=== PATIENT | male | born 1945 | race Caucasian/White ===

== ENCOUNTER → 2018-01-18 09:07 | Outpatient (CLI) | payer MEDICARE, SELFPAY ==
[2018-01-18 10:12] LABS: AST(SGOT) 30 U/L (15-37); Alanine Aminotransfer ALT/SGPT 41 U/L (16-61); Albumin, Serum 3.7 g/dL (3.2-5.0); Alkaline Phosphatase 62 U/L (45-117); Anion Gap 8 (5-15); BUN 22 mg/dL (7-18); BUN/Creat Ratio 27.3 RATIO (10-20); Calcium,Total 8.9 mg/dL (8.5-10.1); Chloride 106 mmol/L (98-107); Cholesterol 141 mg/dL (200); Creatinine, Serum 0.81 mg/dL (0.70-1.30); EST Glomerular Filtration Rate 99 mL/min (>60); Est Glom Filt Rate - Afr Amer 120 mL/min (>60); Globulin 3.6 g/dL (2.2-4.2); Glucose 123 mg/dL (74-106); High Density Lipoprotein 38 mg/dL; Potassium 3.9 mmol/L (3.5-5.1); Protein, Total 7.3 g/dL (6.4-8.2); Sodium Level 143 mmol/L (136-145); Triglycerides 156 mg/dL; Very Low Density Lipoprotein 31 mg/dL (5-40)
== END ==
PROVIDERS: Family Provider Family Medicine; PCP Family Medicine; Visit Provider Family Medicine
DX: E78.5 Hyperlipidemia, unspecified (principal)
CPT/HCPCS: 36415; 80053; 80061

== ENCOUNTER → 2018-07-10 13:44 | Outpatient (CLI) | payer MEDICARE, SELFPAY ==
[2018-06-25 14:23] VITALS: BMI 38.2
[2018-07-09 14:21] VITALS: BMI 38.2
--- NOTE | 2018-07-10 13:47 | ECHOCS_ITS ---
Reason For Study: CAD Procedure This was a 2D Doppler, Color Flow transthoracic echocardiogram. The study was technically difficult. Contrast injection was performed. Exam performed in department. Left Ventricle Normal LV size. Left ventricular systolic function is normal. The estimated ejection fraction is 60 %. No regional wall motion abnormalities noted. Right Ventricle Normal RV size. Normal systolic function. Atria The left atrium is mildly enlarged. Normal right atrium. No doppler evidence for ASD. Mitral Valve There is no mitral annular calcification. Normal mitral valve. Trivial mitral valve insufficiency. Tricuspid Valve Normal tricuspid valve. Trivial tricuspid valve insufficiency. Right ventricular systolic pressure estimated to be 40 mmHg. Aortic Valve Trisinus/trileaflet aortic valve. Normal aortic valve. Mild (1+) aortic valve insufficiency. Pulmonic Valve The pulmonic valve is not well visualized. Great Vessels Normal sized aortic root. Pericardium/Pleural No pericardial effusion. Medication 22 gauge I.V. with prn adaptor inserted into right arm. [id number] given slow IV push to enhance endocardial definition. MMode/2D Measurements & Calculations LVIDd: 5.0 cm IVSd: 0.96 cm Ao root diam: 3.3 cm LVIDs: 3.1 cm LVPWd: 0.98 cm RVDd: 3.6 cm FS: 38.4 % LAV(MOD-bp): 56.4 ml LVAd ap4: 41.1 cm2 SV(MOD-sp4): 97.0 ml LAV(MOD-bp) Indexed: 24.0 ml/m2 EDV(MOD-sp4): 142.7 ml LAV(MOD-sp2): 49.6 ml EDV(sp4-el): 147.7 ml LAV(MOD-sp4): 64.2 ml LVAs ap4: 19.5 cm2 ESV(MOD-sp4): 45.7 ml ESV(sp4-el): 46.4 ml EF(MOD-sp4): 68.0 % EF(sp4-el): 68.6 % SV(sp4-el): 101.3 ml LA A4 area: 20.9 cm2 LA dimension(2D): 3.7 cm RA A4 area: 19.4 cm2 Time Measurements MV dec time: 0.16 sec Doppler Measurements & Calculations MV E max harshal: 82.6 cm/sec Lat Peak E' Harshal: 10.8 cm/sec Med Peak E' Harshal: 7.7 cm/sec MV A max harshal: 68.7 cm/sec E/E' lat: 7.7 E/E' med: 10.7 MV E/A: 1.2 Ao V2 max: 142.5 cm/sec LV V1 max: 131.3 cm/sec PA V2 max: 117.5 cm/sec Ao max P.1 mmHg LV V1 max P.9 mmHg TR max harshal: 304.3 cm/sec TR max P.1 mmHg Interpretation Summary The study was technically difficult. Contrast injection was performed. Left ventricular systolic function is normal. The estimated ejection fraction is 60 %. The left atrium is mildly enlarged. Trivial mitral valve insufficiency. Trivial tricuspid valve insufficiency. Mild (1+) aortic valve insufficiency. Right ventricular systolic pressure estimated to be 40 mmHg. Transmitral diastolic flow velocities suggest diastolic dysfunction (pseudonormal pattern). Ordering Physician: Gisella Collins/Maxim Reno Referring Physician: JONATHAN SKY Performed By: Bell Juarez, DOMINGO, RVT
== END ==
PROVIDERS: Family Provider Family Medicine; PCP Family Medicine; Referring Provider Physician Assistant Medical; Visit Provider Physician Assistant Medical
DX: I49.3 Ventricular premature depolarization (principal)
CPT/HCPCS: 93306; Q9957; A4216; C8929

== ENCOUNTER → 2018-07-23 15:39 | Outpatient (CLI) | payer MEDICARE, SELFPAY ==
[2018-07-23 14:47] VITALS: BMI 38.0
[2018-07-23 17:25] LABS: Anion Gap 7 (5-15); BUN 16 mg/dL (7-18); BUN/Creat Ratio 21.9 RATIO (10-20); Calcium,Total 9.3 mg/dL (8.5-10.1); Chloride 103 mmol/L (98-107); Creatinine, Serum 0.73 mg/dL (0.70-1.30); EST Glomerular Filtration Rate 111 mL/min (>60); Est Glom Filt Rate - Afr Amer 134 mL/min (>60); Glucose 91 mg/dL (74-106); Potassium 4.1 mmol/L (3.5-5.1); Sodium Level 140 mmol/L (136-145)
== END ==
PROVIDERS: Family Provider Family Medicine; PCP Family Medicine; Referring Provider Physician Assistant Medical; Visit Provider Physician Assistant Medical
DX: I25.10 Atherosclerotic heart disease of native coronary artery without angina pectoris (principal); I10 Essential (primary) hypertension
CPT/HCPCS: 36415; 80048

== ENCOUNTER → 2019-01-20 14:52 | Outpatient (CLI) | payer OTHER, SELFPAY ==
[2019-01-20 13:35] VITALS: BMI 37.8
[2019-01-20 16:48] LABS: ALB/GLOB Ratio 0.8 RATIO (0.9-2.4); AST(SGOT) 30 U/L (15-37); Alanine Aminotransfer ALT/SGPT 36 U/L (16-61); Albumin, Serum 3.4 g/dL (3.2-5.0); Alkaline Phosphatase 66 U/L (45-117); Anion Gap 6 (5-15); BUN 14 mg/dL (7-18); BUN/Creat Ratio 17.2 RATIO (10-20); Calcium,Total 8.8 mg/dL (8.5-10.1); Chloride 108 mmol/L (98-107); Cholesterol 129 mg/dL (200); Creatinine, Serum 0.82 mg/dL (0.70-1.30); EST Glomerular Filtration Rate 98 mL/min (>60); Est Glom Filt Rate - Afr Amer 118 mL/min (>60); Glucose 97 mg/dL (74-106); High Density Lipoprotein 38 mg/dL; Potassium 3.6 mmol/L (3.5-5.1); Protein, Total 7.4 g/dL (6.4-8.2); Sodium Level 143 mmol/L (136-145); Triglycerides 189 mg/dL; Very Low Density Lipoprotein 38 mg/dL (5-40)
== END ==
PROVIDERS: Family Provider Family Medicine; PCP Family Medicine; Referring Provider Family Medicine; Visit Provider Family Medicine
DX: E78.5 Hyperlipidemia, unspecified (principal); I25.10 Atherosclerotic heart disease of native coronary artery without angina pectoris
CPT/HCPCS: 36415; 80053; 80061

== ENCOUNTER → 2019-07-21 13:54 | Outpatient (CLI) | payer MEDICARE, SELFPAY ==
[2019-07-21 13:15] VITALS: BMI 37.7
[2019-07-21 15:25] LABS: AST(SGOT) 33 U/L (15-37); Alanine Aminotransfer ALT/SGPT 32 U/L (16-61); Albumin, Serum 3.9 g/dL (3.2-5.0); Alkaline Phosphatase 58 U/L (45-117); Anion Gap 7 (5-15); BUN 19 mg/dL (7-18); BUN/Creat Ratio 22.5 RATIO (10-20); Calcium,Total 9.2 mg/dL (8.5-10.1); Chloride 102 mmol/L (98-107); Cholesterol 150 mg/dL (200); Creatinine, Serum 0.85 mg/dL (0.70-1.30); EST Glomerular Filtration Rate 94 mL/min (>60); Est Glom Filt Rate - Afr Amer 113 mL/min (>60); Globulin 4.1 g/dL (2.2-4.2); Glucose 110 mg/dL (74-106); High Density Lipoprotein 41 mg/dL; Sodium Level 139 mmol/L (136-145); Triglycerides 163 mg/dL; Very Low Density Lipoprotein 33 mg/dL (5-40)
== END ==
PROVIDERS: PCP Family Medicine; Referring Provider Family Medicine; Visit Provider Family Medicine
DX: I10 Essential (primary) hypertension (principal)
CPT/HCPCS: 36415; 80053; 80061

== ENCOUNTER → 2020-01-27 14:12 | Outpatient (CLI) | payer MEDICARE, SELFPAY ==
[2020-01-27 13:20] VITALS: BMI 38.3
[2020-01-27 15:54] LABS: ALB/GLOB Ratio 0.9 RATIO (0.9-2.4); AST(SGOT) 35 U/L (15-37); Alanine Aminotransfer ALT/SGPT 33 U/L (16-61); Albumin, Serum 3.6 g/dL (3.2-5.0); Alkaline Phosphatase 75 U/L (45-117); Anion Gap 4 (5-15); BUN 19 mg/dL (7-18); BUN/Creat Ratio 19.8 RATIO (10-20); Calcium,Total 9.2 mg/dL (8.5-10.1); Chloride 106 mmol/L (98-107); Cholesterol 150 mg/dL (200); Creatinine, Serum 0.96 mg/dL (0.70-1.30); EST Glomerular Filtration Rate 81 mL/min (>60); Est Glom Filt Rate - Afr Amer 98 mL/min (>60); Glucose 115 mg/dL (74-106); High Density Lipoprotein 38 mg/dL; Potassium 4.1 mmol/L (3.5-5.1); Protein, Total 7.6 g/dL (6.4-8.2); Sodium Level 142 mmol/L (136-145); Triglycerides 161 mg/dL; Very Low Density Lipoprotein 32 mg/dL (5-40)
== END ==
PROVIDERS: PCP Family Medicine; Referring Provider Family Medicine; Visit Provider Family Medicine
DX: I10 Essential (primary) hypertension (principal)
CPT/HCPCS: 36415; 80053; 80061

== ENCOUNTER 2020-07-21 17:44 | Outpatient (RCR) | payer MEDICARE, SELFPAY ==
[2020-03-17 13:02] VITALS: BMI 35.7
[2020-07-21] MEDS: COVID-19 VACC, MRNA(PFIZER)/PF 30 MCG/0.3 ML SYRINGE IM (14:09)
[2020-08-11] MEDS: COVID-19 VACC, MRNA(PFIZER)/PF 30 MCG/0.3 ML SYRINGE IM (13:50)
== END 2020-10-25 23:59 ==
LOC: IMMUN 17:44
PROVIDERS: PCP Family Medicine; Referring Provider Family Medicine; Visit Provider Family Medicine
DX: Z23 Encounter for immunization (principal)
CPT/HCPCS: 0001A; 0002A; 91300

== ENCOUNTER 2020-11-11 17:48 | Inpatient (IN) | payer MEDICARE, SELFPAY ==
[2020-07-27 13:23] VITALS: BMI 35.2
[2020-11-11 17:49] VITALS: BP 160/76; PULSE 104; RESP 16; TEMP 38.4; O2SAT 92; BMI 33.2
[2020-11-11 18:34] LABS: Anion Gap 10 (5-15); BUN 31 mg/dL (7-18); BUN/Creat Ratio 25.2 RATIO (10-20); Calcium,Total 8.9 mg/dL (8.5-10.1); Chloride 99 mmol/L (98-107); Creatinine, Serum 1.23 mg/dL (0.70-1.30); EST Glomerular Filtration Rate 61 mL/min (>60); Est Glom Filt Rate - Afr Amer 73 mL/min (>60); Estimated Creatinine Clearance 50.29 ml/min; Glucose 154 mg/dL (74-106); Potassium 3.1 mmol/L (3.5-5.1); Sodium Level 136 mmol/L (136-145)
[2020-11-11 18:44] LABS: Absolute Lymphocyte Count 0.38 X10^3/uL (0.83-4.51); Absolute Neutrophil Count 12.8 X10^3/uL (2.0-7.7); Basophil# 0.04 X10^3/uL; Basophil% 0.3 % (0-1); Eosinophils% 0.7 % (0-5); Hematocrit 44.6 % (40-54); Hemoglobin 15.2 g/dL (13.0-16.5); Lymphocyte # 0.38 X10^3/ul (0.83-4.51); Lymphocyte % 2.7 % (19-41); Mean Corp Hgb Conc 34.1 g/dL (32-36); Mean Corpuscular Hgb 29.7 pg (27.0-32.0); Mean Corpuscular Volume 87.3 fL (80-94); Mean Platelet Vol. 9.6 fl (6.2-12.0); Monocyte# 0.45 X10^3/uL; Monocyte% 3.2 % (0-10); NRBC Flagged by Analyzer 0 % (0-5); Neutrophil # 12.84 X10^3/uL (2.7-7.7); Neutrophil % 91.9 % (47-70); POSITIVE DIFFERENTIAL YES; Platelet Count 137 K/mm3 (150-450); RBC Distribution Width CV 13.6 % (11.6-14.6); RBC Distribution Width SD 43.7 fl (35.1-43.9); Red Blood Count 5.11 M/mm3 (4.6-6.2)
[2020-11-11 18:53] LABS: Lactic Acid 1.5 mmol/L (0.4-1.9)
--- NOTE | 2020-11-11 18:57 | RAD_ITS ---
STUDY: X-RAY CHEST REASON FOR EXAM: Male, 75 years old. fever TECHNIQUE: 1 view COMPARISON: Prior chest radiograph of 10/18/2011 FINDINGS: Reduced inspiration with mild bibasilar atelectatic changes. There is no demonstrated pleural abnormality. Normal size heart. Normal mediastinum and andrew. Normal visualized pulmonary arteries. There is atherosclerotic calcification of the aortic arch . Normal visualized thoracic spine. Normal visualized ribs, clavicles, and shoulders. There is no demonstrated abnormality of the visualized soft tissue structures of the upper abdomen. RAD/Chest 1 View (Portable) IMPRESSION: Limited inspiration with mild bibasilar atelectatic changes without other acute cardiopulmonary findings. Electronically Signed: Meenakshi Corley MD at 21:35 EDT , Service support ,
--- NOTE | 2020-11-11 18:58 | EDS_ITS ---
HPI History of Present Illness Chief Complaint: Fever Detail of Chief Complaint: Patient with fever that started yesterday. Informant: patient Narrative Narrative: Patient states that has not been feeling well for a couple of days. Today they noticed that he had a temperature of 103. Patient planes of chills and sweats and feeling generally weak. Patient also noticed that his left leg was red and hot to the touch. Patient denies any chest pain or shortness of breath. He has minimal cough. Patient has had both Covid vaccinations. Patient also complaining of some pain in his left shoulder. The pain in the shoulder is been there for a couple of days he is not sure if he may have hurt it. Prior similar symptoms: No PFSH [facility] Medical History (Updated 11/11/20 @ 20:[address] Shari Thornton, ) Arthritis Atherosclerotic heart disease of [place] coronary artery without angina pectoris Dyspnea on exertion Essential hypertension Hyperlipidemia SILAS (obstructive sleep apnea) Photosensitivity Premature ventricular contraction PVT (paroxysmal ventricular tachycardia) Home Medications aspirin 81 mg tablet,delayed release 81 mg PO QDAY tab 08/12/17 [History Last Taken Unknown] loratadine 10 mg tablet 10 mg PO QDAY PRN 08/12/17 [History Last Taken Unknown] multivitamin 1 tab PO QDAY 08/12/17 [History Last Taken Unknown] Lactobacillus acidophilus-Bifidobac.animalis 2 billion cell capsule cap PO 01/27/20 [History Last Taken Unknown] metoprolol tartrate 100 mg tablet 100 mg PO BID #180 tab 02/01/20 [Rx Last Taken Unknown] pravastatin 40 mg tablet 40 mg PO QHS #90 tab 02/26/20 [Rx Last Taken Unknown] amlodipine 5 mg tablet 5 mg PO QDAY #90 tab 03/28/20 [Rx Last Taken Unknown] hydrochlorothiazide 25 mg tablet 25 mg PO QDAY #90 tab 06/14/20 [Rx Last Taken Unknown] acetaminophen 325 mg tablet 325 mg PO ONCE PRN 07/27/20 [History Last Taken Unknown] furosemide 40 mg tablet 40 mg PO DAILY PRN #30 tab 07/27/20 [Rx Last Taken Unknown] Allergy/AdvReac Type Severity Reaction Status Date / Time lisinopril AdvReac Severe Tachycardia Verified 11/11/20 17:52 losartan [From Cozaar] AdvReac Severe flushing Verified 06/25/21 17:52 of face and chest Family History Brother Dysrhythmia Brother CAD (coronary artery disease) Presence of stent in coronary artery Cancer prostate Father Heart disease Cancer prostate Surgical History History of cardiac cath Hx of appendectomy Social History (Updated 07/27/20 @ 13:[address] Rudolph Be, DO) Smoking Status: Former smoker how long ago did patient quit smokin alcohol intake: current alcohol intake frequency: a few times a month Alcohol type: beer substance use type: does not use what type of physical activity do you participate in: walking ROS ROS ED Constitutional Constitutional ED: Reports systems reviewed and no addt'l complaints, except as documented, chills, fever(s) and sweats; Denies body ache(s) or change in weight Eyes Eyes: Denies acute decrease in peripheral vision, change in vision, double vision or loss of vision ENT ENT ED: Reports none; Denies ear pain, lip swelling, loss taste/smell, neck pain, otalgia or sore throat Cardiovascular Cardiovascular: Reports none; Denies abdominal pain, chest pain with activity, leg edema, lightheadedness, palpitations, rapid heart rate or syncope Respiratory/Chest Respiratory/Chest: Reports none; Denies change in mental status, dry cough, dyspnea, hemoptysis, shortness of breath at rest or shortness of breath with exertion Gastrointestinal Gastrointestinal: Reports none; Denies abdominal pain, change in stool character, diarrhea, hematemesis, hematochezia, melena, rectal bleeding or vomiting Genitourinary Genitourinary ED: Reports none; Denies abdominal discomfort, anuria, dysuria, genital pain or polyuria Musculoskeletal Musculoskeletal: Reports none; Denies arthralgias, back pain, difficulty walking, extremity pain, muscle weakness or myalgias Integumentary Reports none and other Details: Erythema to the left leg ; Denies abscess or rash Neurologic Neurologic: Reports none; Denies abnormal gait, confusion, focal weakness, frequent falls, headache(s), loss of vision, numbness, paresthesias, radicular pain, vertigo or weakness Psychiatric Psychiatric: Reports systems reviewed and no addt'l complaints, except as documented and none; Denies behavioral changes, confusion, difficulty concentrating, hallucinations, suicidal ideation, tactile hallucinations or visual hallucinations Endocrine Endocrinology: Denies none, cold intolerance, excessive sweating, fatigue or heat intolerance Hematologic/Lymphatic Hematologic/Lymphatic: Reports none; Denies anemia, easy bleeding or easy bruising Allergic/Immunologic Allergic/Immunologic ED: Denies as per HPI, none, lip swelling, mouth swelling, throat swelling, tongue swelling or hives EXAM Physical Exam Const Vital Signs: 11/11/20 17:49 Temperature 101.1 F H Temperature Source Temporal Pulse Rate 104 H Respiratory Rate 16 Blood Pressure 160/76 H Blood Pressure Mean 104 Pulse Ox 92 Oxygen Delivery Method Room Air Positive well nourished and well developed General Appearance ED: well developed and NAD HEENT Reports TM's clear and moist mucous membranes normocephalic and atraumatic; Negative for trauma or tenderness Tympanic Membrane ED: Yes TM's clear Eyes PERRL and EOMs intact bilaterally General Eye ED: Negative for pale conjunctiva or scleral icterus Neck no lymphadenopathy, supple and no JVD General: Negative for tenderness Chest Wall inspection of chest normal and palpation of chest normal Chest: Negative for tenderness Resp normal respiratory effort and clear to auscultation bilaterally Effort and Inspection: Negative for respiratory distress or pain with movement Auscultation: Negative for rhonchi, wheezes or diminished lung sounds Cardio regular rate, regular rhythm, S1 normal heart sound, S2 normal heart sound and no murmurs Peripheral Pulses: pulses 2+ throughout GI normal to inspection, nondistended, normoactive bowel sounds, soft to palpation, non-tender, non-distended and no masses Back/Spine no CVA tenderness and no thoracic nor lumbar tenderness Extremity normal to inspection Extremity Narrative: Patient has cellulitic changes of the left lower extremities from below the knee to the dorsum of the foot. General Extremety ED: Negative for edema General Extremity: Negative for edema Neuro oriented x3, CN's II-XII intact bilaterally, no sensory deficits noted and gait normal Sensorium / Orientation: awake, alert, oriented to person, oriented to place and oriented to time Motor Exam: strength 5/5 throughout and strength abnormal Psych mental status grossly normal Skin no rashes or lesions noted and no wounds MDM MDM MDM Narrative Medical decision making narrative: Patient started on Unasyn on arrival. Patient case discussed with hospitalist will evaluate patient for admission Lab Data Labs: Laboratory Results - last 24 hr 11/11/20 11/11/20 11/11/20 18:05 18:05 18:05 WBC 14.0 H RBC 5.11 Hgb 15.2 Hct 44.6 MCV 87.3 MCH 29.7 MCHC 34.1 RDW Std Deviation 43.7 RDW Coeff of [place] 13.6 Plt Count 137 L MPV 9.6 Immature Gran % (Auto) 1.200 H Neut % (Auto) 91.9 H Lymph % (Auto) 2.7 L [place] % (Auto) 3.2 Eos % (Auto) 0.7 Baso % (Auto) 0.3 Absolute Neuts (auto) 12.8 H Absolute Lymphs (auto) 0.38 L Nucleated RBC % 0 Differential Comment SCANNED Sodium 136 Potassium 3.1 L Chloride 99 Carbon Dioxide 27.0 Anion Gap 10 BUN 31 H Creatinine 1.23 Estim Creat Clear Calc 50.29 Est GFR (MDRD) Af Amer 73 Est GFR (MDRD) Non-Af 61 BUN/Creatinine Ratio 25.2 H Glucose 154 H Lactic Acid 1.5 Calcium 8.9 Discharge Plan Triage Chief Complaint: Fever ED Provider: Shari Thornton Dx/Rx/DC Orders Clinical Impression: Cellulitis of left leg, Sepsis Prescriptions: No Action multivitamin tablet 1 tab PO QDAY RF: 0 loratadine 10 mg tablet 10 mg PO QDAY PRNRF: 0 aspirin 81 mg tablet,delayed release (DR/EC) 81 mg PO QDAY RF: 0 One-A-Day Trubiotics 2 billion cell capsule PO RF: 0 acetaminophen 325 mg tablet 325 mg PO ONCE PRNRF: 0 furosemide [Lasix] 40 mg tablet 40 mg PO DAILY PRN (Reason: edema) Qty: 30 RF: 3 metoprolol tartrate 100 mg tablet 100 mg PO BID Qty: 180 RF: 3 pravastatin 40 mg tablet 40 mg PO QHS Qty: 90 RF: 3 amlodipine 5 mg tablet 5 mg PO QDAY Qty: 90 RF: 4 hydrochlorothiazide 25 mg tablet 25 mg PO QDAY Qty: 90 RF: 3 Primary Care Provider: Rudolph Be Referrals: Rudolph Be, DO [Primary Care Provider] - Disposition Disposition: [facility]
[2020-11-11 19:00] LABS: Differential Indicated SCAN CRITERIA MET
[2020-11-11 19:33] LABS: Differential Comment SCANNED
[2020-11-11] MEDS: 0.9% Normal Saline 1,000 ML 1000 ML IV (20:18)
[2020-11-11 20:22] LABS: Color, Urine Yellow (Yellow); Glucose, Dipstick Normal (Normal); Ketone-Dipstick 15 mg/dl (Negative); Leukocyte Esterase-Dipstick Negative /ul (Negative); Nitrite-Dipstick Negative (Negative); Occult Blood-Urine 150 /ul (Negative); Protein-Dipstick 100 mg/dl (Negative); Urine Bilirubin Dipstick Negative (Negative); Urine Clarity Clear (Clear); Urine Urobilinogen Normal (Normal)
[2020-11-11 20:44] LABS: Amorphous Sediment 1+; Bacteria 1+ /hpf (None Seen); Fine Granular Cast- Urine 0-5 SEEN /lpf (0-5); Hyaline Cast 0-5 SEEN /lpf (0-5); Mucous, Urine 1+ /hpf (<or=2+); Red Blood Cells-Urine 0-5 SEEN /hpf (0-5); Renal Epithelial Cells 0-5 SEEN /hpf (0-5); Squamous Epithelial Cells - UA 0-5 SEEN /hpf (0-5); White Blood Cells 0-5 SEEN /hpf (0-5)
--- NOTE | 2020-11-11 20:50 | PCM.HP.STD ---
HPI - General General Date of Admission: 11/11/20 Date of Service: 11/11/20 Chief Complaint: malaise HPI Narrative DEJUAN PÉREZ, is a 75 M who presents presents with a 2-day history of general malaise, myalgias and weakness. About 3 days prior, patient had noticed some pain in his distal left leg. That eventually developed redness on his left lower extremity. Patient just felt weaker and weaker and just more ill and presented to the emergency room. Patient had a infectious work-up and was found to have left lower extremity cellulitis and received ampicillin/sulbactam. Patient denies ever having had cellulitis before. [facility] Medical History Arthritis Atherosclerotic heart disease of [place] coronary artery without angina pectoris Dyspnea on exertion Essential hypertension Hyperlipidemia SILAS (obstructive sleep apnea) Photosensitivity Premature ventricular contraction PVT (paroxysmal ventricular tachycardia) Home Medications aspirin 81 mg tablet,delayed release 81 mg PO QDAY tab 08/12/17 [History Last Taken Unknown] loratadine 10 mg tablet 10 mg PO QDAY PRN 08/12/17 [History Last Taken Unknown] multivitamin 1 tab PO QDAY 08/12/17 [History Last Taken Unknown] Lactobacillus acidophilus-Bifidobac.animalis 2 billion cell capsule cap PO 01/27/20 [History Last Taken Unknown] metoprolol tartrate 100 mg tablet 100 mg PO BID #180 tab 02/01/20 [Rx Last Taken Unknown] pravastatin 40 mg tablet 40 mg PO QHS #90 tab 02/26/20 [Rx Last Taken Unknown] amlodipine 5 mg tablet 5 mg PO QDAY #90 tab 03/28/20 [Rx Last Taken Unknown] hydrochlorothiazide 25 mg tablet 25 mg PO QDAY #90 tab 06/14/20 [Rx Last Taken Unknown] acetaminophen 325 mg tablet 325 mg PO ONCE PRN 07/27/20 [History Last Taken Unknown] furosemide 40 mg tablet 40 mg PO DAILY PRN #30 tab 07/27/20 [Rx Last Taken Unknown] Allergy/AdvReac Type Severity Reaction Status Date / Time lisinopril AdvReac Severe Tachycardia Verified 11/11/20 17:52 losartan [From Cozaar] AdvReac Severe flushing Verified 11/11/20 17:52 of face and chest Family History Brother Dysrhythmia Brother CAD (coronary artery disease) Presence of stent in coronary artery Cancer prostate Father Heart disease Cancer prostate Surgical History History of cardiac cath Hx of appendectomy Social History Smoking Status: Former smoker how long ago did patient quit smokin alcohol intake: current alcohol intake frequency: a few times a month Alcohol type: beer substance use type: does not use what type of physical activity do you participate in: walking ROS ROS Narrative Positive cough. No shortness of breath. No chest pain. No sore throat or rhinitis. Denies anosmia. Denies dysgeusia. Denies any sick contacts. Denies any contact with anyone with COVID-19. Has been vaccinated from COVID-19. All review of systems were negative except as mentioned above in the history of present illness and the other review of systems. Vital Signs Vital Signs Vital Signs: 11/11/20 17:49 Temperature 38.4 C H Temperature Source Temporal Pulse Rate 104 H Respiratory Rate 16 Blood Pressure 160/76 H Blood Pressure Mean 104 Pulse Ox 92 Oxygen Delivery Method Room Air Weight Weight: 102.058 kg Body Mass Index (BMI) 33.2 Physical Exam Const alert and oriented x3 HEENT normocephalic and moist oral mucous membranes Eyes PERRL Resp normal respiratory effort and no use of accessory muscles Cardio regular rate, regular rhythm, S1 normal heart sound and S2 normal heart sound GI normal to inspection, nondistended, normoactive bowel sounds, non-tender and non-distended Extremity normal to inspection Extremity Narrative: Bilateral nonpitting edema lower extremity Peripheral Pulses: Yes pulses 2+ throughout Skin Skin Narrative: Erythema of the distal left lower extremity. At the ankle and extending proximally. Does have satellite lesions. Is warm but not indurated. Neuro moves all extremities Sensorium / Orientation: awake and alert Speech: speech normal Psych affect normal Results Lab / Micro Data Attestation: I reviewed the patient's lab results. Result Diagrams: 11/11/20 18:05 11/11/20 18:05 Labs: Laboratory Results - last 24 hr 11/11/20 11/11/20 11/11/20 18:05 18:05 18:05 WBC 14.0 H RBC 5.11 Hgb 15.2 Hct 44.6 MCV 87.3 MCH 29.7 MCHC 34.1 RDW Std Deviation 43.7 RDW Coeff of [place] 13.6 Plt Count 137 L MPV 9.6 Immature Gran % (Auto) 1.200 H Neut % (Auto) 91.9 H Lymph % (Auto) 2.7 L [place] % (Auto) 3.2 Eos % (Auto) 0.7 Baso % (Auto) 0.3 Absolute Neuts (auto) 12.8 H Absolute Lymphs (auto) 0.38 L Nucleated RBC % 0 Differential Comment SCANNED Sodium 136 Potassium 3.1 L Chloride 99 Carbon Dioxide 27.0 Anion Gap 10 BUN 31 H Creatinine 1.23 Estim Creat Clear Calc 50.29 Est GFR (MDRD) Af Amer 73 Est GFR (MDRD) Non-Af 61 BUN/Creatinine Ratio 25.2 H Glucose 154 H Lactic Acid 1.5 Calcium 8.9 Urine Color Urine Clarity Urine pH Ur Specific [place] Urine Protein Urine Glucose (UA) Urine Ketones Urine Occult Blood Urine Nitrite Urine Bilirubin Urine Urobilinogen Ur Leukocyte Esterase Urine RBC Urine WBC Ur Squamous Epith Cells Ur Renal Epithelial Cell Amorphous Sediment Urine Bacteria Hyaline Casts Fine Granular Casts Urine Mucus 11/11/20 20:15 WBC RBC Hgb Hct MCV MCH MCHC RDW Std Deviation RDW Coeff of [place] Plt Count MPV Immature Gran % (Auto) Neut % (Auto) Lymph % (Auto) [place] % (Auto) Eos % (Auto) Baso % (Auto) Absolute Neuts (auto) Absolute Lymphs (auto) Nucleated RBC % Differential Comment Sodium Potassium Chloride Carbon Dioxide Anion Gap BUN Creatinine Estim Creat Clear Calc Est GFR (MDRD) Af Amer Est GFR (MDRD) Non-Af BUN/Creatinine Ratio Glucose Lactic Acid Calcium Urine Color Yellow Urine Clarity Clear Urine pH 5.0 Ur Specific [place] 1.020 Urine Protein 100 H Urine Glucose (UA) Normal Urine Ketones 15 H Urine Occult Blood 150 H Urine Nitrite Negative Urine Bilirubin Negative Urine Urobilinogen Normal Ur Leukocyte Esterase Negative Urine RBC 0-5 SEEN Urine WBC 0-5 SEEN Ur Squamous Epith Cells 0-5 SEEN Ur Renal Epithelial Cell 0-5 SEEN Amorphous Sediment 1+ Urine Bacteria 1+ Hyaline Casts 0-5 SEEN Fine Granular Casts 0-5 SEEN Urine Mucus 1+ Assessment & Plan Assessment/Plan (1) Cellulitis of left leg: PLAN: 1. Left lower extremity cellulitis No evidence of organ dysfunction. qSOFA score 0. NEWS 2 score is 2. Sepsis rule out may be early sepsis. Patient received ampicillin/sulbactam in the emergency room. I am concerned for staph or strep and will give the patient monotherapy with vancomycin instead. Plan is to watch patient overnight and if improving 26 then can transition him over to oral agents. 2. Hypertension On amlodipine as well as metoprolol. Patient also takes furosemide and HCTZ. Patient is dehydrated so we will give him fluids and hold off on his diuretics. Patient does have lower extremity edema. May consider as outpatient changing the amlodipine over to something else to see if that helps his lower extremity edema. 3. VTE prophylaxis: Not indicated given patient's current observation status at this time. 4. Advanced care planning: Discussed with the patient. Patient wishes to be full CODE STATUS 5. Health maintenance: Discussed with patient. Patient has been vaccinated for COVID-19. Charges/Coding Visit Charges OBSV E&M: 43841 Initial observation care L3
[2020-11-11 21:03] VITALS: BP 143/68; PULSE 101; RESP 23; O2SAT 93
[2020-11-11 21:44] VITALS: PULSE 98
[2020-11-11 22:03] VITALS: BMI 35.3
[2020-11-11] MEDS: Acetaminophen 325 MG Tablet 650 MG PO (22:18)
[2020-11-11 22:28] VITALS: BP 117/40; PULSE 91; RESP 16; TEMP 39.4; O2SAT 93
[2020-11-11] MEDS: Potassium Chloride Oral Tablet 20 MEQ 40 MEQ PO (22:52)
[2020-11-11 22:53] VITALS: PULSE 91
[2020-11-11] MEDS: 0.9% Normal Saline 1,000 ML 200 ML IV (22:53)
[2020-11-11] MEDS: Metoprolol Tartrate 100 MG Tablet PO (22:53)
[2020-11-11] MEDS: Pravastatin 40 MG Tablet PO (22:53)
[2020-11-11] MEDS: Ibuprofen 400 MG Tablet PO (22:55)
--- NOTE | 2020-11-11 23:41 | PCM.RX.CS ---
Consult Pharmacy has been consulted to manage selected antiobiotic: Vancomycin Type of Consult: New start Prior Doses of Antibiotics Received/Current Regimen: Medications Vancomycin HCl 1,500 mg/ (Sodium Chloride) 530 mls @ 250 mls/hr IV X1 ONE Stop: 11/12/20 01:07 Last Admin: 11/11/20 22:52 Dose: 250 mls/hr Documented by: Labs: Sodium 136 mmol/L (136-145) 11/11/20 18:05 Potassium 3.1 mmol/L (3.5-5.1) L 11/11/20 18:05 Chloride 99 mmol/L (98-107) 11/11/20 18:05 Carbon Dioxide 27.0 mmol/L (21.0-32.0) 11/11/20 18:05 Anion Gap 10 (5-15) 11/11/20 18:05 BUN 31 mg/dL (7-18) H 11/11/20 18:05 Creatinine 1.23 mg/dL (0.70-1.30) 11/11/20 18:05 Est GFR (MDRD) Af Amer 73 mL/min (>60) 11/11/20 18:05 Est GFR (MDRD) Non-Af 61 mL/min (>60) 11/11/20 18:05 BUN/Creatinine Ratio 25.2 RATIO (10-20) H 11/11/20 18:05 Glucose 154 mg/dL (74-106) H 11/11/20 18:05 Goal Trough: 10-15 mcg/mL Pharmacy Plan for Drug Dosinmg initial and 1000mg q12h per policy with trough prior to 4th dose Pharmacy Service will continue to monitor and adjust dosing as required. Follow-Up Labs: Trough Vancomycin - 11/13 @ 1573
[2020-11-12] VITALS (7 sets, daily range): BP systolic 109–143; BP diastolic 50–66; PULSE 65–85; RESP 16–18; TEMP 36.6–37.6; O2SAT 94–97
[2020-11-12 06:33] LABS: Absolute Lymphocyte Count 0.36 X10^3/uL (0.83-4.51); Absolute Neutrophil Count 10.3 X10^3/uL (2.0-7.7); Basophil# 0.02 X10^3/uL; Basophil% 0.2 % (0-1); Hematocrit 41.6 % (40-54); Hemoglobin 13.6 g/dL (13.0-16.5); Lymphocyte # 0.36 X10^3/ul (0.83-4.51); Lymphocyte % 3.2 % (19-41); Mean Corp Hgb Conc 32.7 g/dL (32-36); Mean Corpuscular Hgb 29.2 pg (27.0-32.0); Mean Corpuscular Volume 89.5 fL (80-94); Mean Platelet Vol. 9.9 fl (6.2-12.0); Monocyte# 0.33 X10^3/uL; NRBC Flagged by Analyzer 0 % (0-5); Neutrophil # 10.29 X10^3/uL (2.7-7.7); Neutrophil % 92.9 % (47-70); POSITIVE DIFFERENTIAL YES; POSITIVE MORPHOLOGY YES; Platelet Count 118 K/mm3 (150-450); RBC Distribution Width CV 13.8 % (11.6-14.6); RBC Distribution Width SD 44.6 fl (35.1-43.9); Red Blood Count 4.65 M/mm3 (4.6-6.2); White Blood Count 11.1 K/mm3 (4.4-11.0)
[2020-11-12 06:34] LABS: Differential Indicated SCAN CRITERIA MET
[2020-11-12 07:05] LABS: ALB/GLOB Ratio 0.8 RATIO (0.9-2.4); AST(SGOT) 44 U/L (15-37); Alanine Aminotransfer ALT/SGPT 30 U/L (16-61); Albumin, Serum 2.6 g/dL (3.2-5.0); Alkaline Phosphatase 60 U/L (45-117); Anion Gap 9 (5-15); BUN 27 mg/dL (7-18); BUN/Creat Ratio 27.2 RATIO (10-20); Calcium,Total 7.7 mg/dL (8.5-10.1); Chloride 104 mmol/L (98-107); Creatinine, Serum 0.99 mg/dL (0.70-1.30); EST Glomerular Filtration Rate 78 mL/min (>60); Est Glom Filt Rate - Afr Amer 94 mL/min (>60); Estimated Creatinine Clearance 66.55 ml/min; Globulin 3.4 g/dL (2.2-4.2); Glucose 123 mg/dL (74-106); Magnesium 1.7 mg/dL (1.6-2.6); Sodium Level 139 mmol/L (136-145)
[2020-11-12 07:08] LABS: Differential Comment SCANNED
[2020-11-12] MEDS: Aspirin E.C. 81 MG Tablet PO (09:38)
[2020-11-12] MEDS: Acetaminophen 325 MG Tablet 650 MG PO ×2 (09:38→20:20)
[2020-11-12] MEDS: Metoprolol Tartrate 100 MG Tablet PO ×2 (09:38→21:00)
[2020-11-12] MEDS: Multivitamins,Therapeutic Tablet 1 TABLET PO (09:39)
[2020-11-12] MEDS: amLODIPine 5 MG Tablet PO (09:39)
[2020-11-12] MEDS: Vancomycin IV 1,000 MG/200 ML BAG 200 MG IV ×2 (11:10→22:30)
[2020-11-12] MEDS: Furosemide 40 MG Tablet PO (12:26)
--- NOTE | 2020-11-12 14:05 | PN.HOSP_ITS ---
Subjective Subjective Patient was seen and examined. He feels improved. Denied any fever or chills. His leg swelling and erythema is much improved. Objective Data Objective Data Vital Signs: Vital Signs Temp Pulse Resp BP Pulse Ox 98.4 F 65 16 115/61 95 11/12/20 12:39 11/12/20 12:39 11/12/20 12:39 11/12/20 12:39 11/12/20 12:39 Oxygen Delivery Method Room Air Weight: 114.8 kg Body Mass Index (BMI) 35.3 Intake & Output: Intake and Output for Last 24 Hours 11/10/20 11/11/20 11/12/20 23:59 23:59 23:59 Intake Total 1352 / 1352 2480 / 2480 Output Total 100 / 100 950 / 950 Balance 1252 / 1252 1530 / 1530 Lab / Micro Data Result Diagrams: 11/12/20 05:14 11/12/20 05:14 Labs: Laboratory Results - last 24 hr 11/11/20 11/11/20 11/11/20 18:05 18:05 18:05 WBC 14.0 H RBC 5.11 Hgb 15.2 Hct 44.6 MCV 87.3 MCH 29.7 MCHC 34.1 RDW Std Deviation 43.7 RDW Coeff of [place] 13.6 Plt Count 137 L MPV 9.6 Immature Gran % (Auto) 1.200 H Neut % (Auto) 91.9 H Lymph % (Auto) 2.7 L [place] % (Auto) 3.2 Eos % (Auto) 0.7 Baso % (Auto) 0.3 Absolute Neuts (auto) 12.8 H Absolute Lymphs (auto) 0.38 L Nucleated RBC % 0 Differential Comment SCANNED Sodium 136 Potassium 3.1 L Chloride 99 Carbon Dioxide 27.0 Anion Gap 10 BUN 31 H Creatinine 1.23 Estim Creat Clear Calc 50.29 Est GFR (MDRD) Af Amer 73 Est GFR (MDRD) Non-Af 61 BUN/Creatinine Ratio 25.2 H Glucose 154 H Lactic Acid 1.5 Calcium 8.9 Magnesium Total Bilirubin AST ALT Alkaline Phosphatase Total Protein Albumin Globulin Albumin/Globulin Ratio Urine Color Urine Clarity Urine pH Ur Specific [place] Urine Protein Urine Glucose (UA) Urine Ketones Urine Occult Blood Urine Nitrite Urine Bilirubin Urine Urobilinogen Ur Leukocyte Esterase Urine RBC Urine WBC Ur Squamous Epith Cells Ur Renal Epithelial Cell Amorphous Sediment Urine Bacteria Hyaline Casts Fine Granular Casts Urine Mucus 11/11/20 11/12/20 11/12/20 20:15 05:14 05:14 WBC 11.1 H RBC 4.65 Hgb 13.6 Hct 41.6 MCV 89.5 MCH 29.2 MCHC 32.7 RDW Std Deviation 44.6 H RDW Coeff of [place] 13.8 Plt Count 118 L MPV 9.9 Immature Gran % (Auto) 0.700 Neut % (Auto) 92.9 H Lymph % (Auto) 3.2 L [place] % (Auto) 3.0 Eos % (Auto) 0.0 Baso % (Auto) 0.2 Absolute Neuts (auto) 10.3 H Absolute Lymphs (auto) 0.36 L Nucleated RBC % 0 Differential Comment SCANNED Sodium 139 Potassium 3.0 L Chloride 104 Carbon Dioxide 26.0 Anion Gap 9 BUN 27 H Creatinine 0.99 Estim Creat Clear Calc 66.55 Est GFR (MDRD) Af Amer 94 Est GFR (MDRD) Non-Af 78 BUN/Creatinine Ratio 27.2 H Glucose 123 H Lactic Acid Calcium 7.7 L Magnesium 1.7 Total Bilirubin 1.20 H AST 44 H ALT 30 Alkaline Phosphatase 60 Total Protein 6.0 L Albumin 2.6 L Globulin 3.4 Albumin/Globulin Ratio 0.8 L Urine Color Yellow Urine Clarity Clear Urine pH 5.0 Ur Specific [place] 1.020 Urine Protein 100 H Urine Glucose (UA) Normal Urine Ketones 15 H Urine Occult Blood 150 H Urine Nitrite Negative Urine Bilirubin Negative Urine Urobilinogen Normal Ur Leukocyte Esterase Negative Urine RBC 0-5 SEEN Urine WBC 0-5 SEEN Ur Squamous Epith Cells 0-5 SEEN Ur Renal Epithelial Cell 0-5 SEEN Amorphous Sediment 1+ Urine Bacteria 1+ Hyaline Casts 0-5 SEEN Fine Granular Casts 0-5 SEEN Urine Mucus 1+ Micro: Microbiology 11/11/20 20:02 Blood Culture (Wb) - Right Wrist Blood Culture - Preliminary 11/11/20 18:05 Blood Culture (Wb) - Right Hand Bacteria Detection (PCR) - Final Strep not Strep pneumo 11/11/20 18:05 Blood Culture (Wb) - Right Hand Blood Culture - Preliminary Radiography Diagnostic Testing: Radiology Impression Chest X-Ray 11/11/20 18:57 IMPRESSION: Limited inspiration with mild bibasilar atelectatic changes without other acute cardiopulmonary findings. Electronically Signed: Meenakshi Corley MD at 21:35 EDT , Service support , Physical Exam Narrative Physical exam: General: Alert, Oriented x3, Cooperative, No apparent distress, Well developed HEENT: Atraumatic Oral: Moist Mucosa Neck: Supple Lungs: Clear to auscultation Cardiovascular: HS I+II, regular, no murmurs Abdomen: Bowel Sounds Present, Soft, Non Tender Extremities: Left lower leg erythema and edema is much improved. Assessment & Plan Assessment/Plan (1) Cellulitis of left leg: (2) Essential hypertension: (3) Dyspnea on exertion: (4) Atherosclerotic heart disease of [place] coronary artery without angina pectoris: QUALIFIERS: [place] vs. transplanted heart: [place] heart Qualified Code(s): I25.10 - Atherosclerotic heart disease of [place] coronary artery without angina pectoris PLAN: 1. Acute left lower leg cellulitis, in the setting of chronic venous insufficiency, improving Continue on IV vancomycin and Zosyn, continue to elevate the leg Bao wrap to lower extremity 2. Streptococcal bacteremia, see initial blood cultures, repeat blood cultures are pending Continue on IV cefazolin for now We will get a 2D echo 3. Hypokalemia, replaced 4. Hypertension, controlled, would discontinue amlodipine on account of lower leg edema Hold hydrochlorothiazide on account of hypokalemia Patient has adverse reaction to lisinopril and losartan -see allergy list Start Coreg 3.125 mg twice daily, repeat renal function in a.m. 5. Rest of her chronic medical conditions are stable Continue rest of her home medications
[2020-11-12] MEDS: Cefazolin 2 GM in 0.9% Normal Saline 100 ML IV ×3 (14:56→23:53)
--- NOTE | 2020-11-12 16:18 | CASEMGMT ---
JOHN CM in to discuss STONE form with patient. RN CM explained STONE form, patient voiced understanding. Pt signed form and filed in chart. Pt provided with a copy of signed STONE form. Patient had no further questions or concerns at this time.
[2020-11-12] MEDS: Pravastatin 40 MG Tablet PO (21:00)
[2020-11-13 02:54] VITALS: BP 143/61; PULSE 72; RESP 16; TEMP 37; O2SAT 94
[2020-11-13] MEDS: Cefazolin 2 GM in 0.9% Normal Saline 100 ML IV ×4 (05:54→23:23)
[2020-11-13 07:36] LABS: Magnesium 1.8 mg/dL (1.6-2.6)
[2020-11-13] MEDS: Loratadine 10 MG Tablet PO (08:00)
[2020-11-13] MEDS: Multivitamins,Therapeutic Tablet 1 TABLET PO (08:00)
[2020-11-13 08:02] VITALS: BP 144/77; PULSE 78; RESP 18; TEMP 37.1; O2SAT 98
[2020-11-13 08:49] LABS: ALB/GLOB Ratio 0.6 RATIO (0.9-2.4); AST(SGOT) 85 U/L (15-37); Alanine Aminotransfer ALT/SGPT 43 U/L (16-61); Albumin, Serum 2.4 g/dL (3.2-5.0); Alkaline Phosphatase 83 U/L (45-117); Anion Gap 12 (5-15); BUN 17 mg/dL (7-18); BUN/Creat Ratio 21.4 RATIO (10-20); Calcium,Total 7.4 mg/dL (8.5-10.1); Chloride 105 mmol/L (98-107); EST Glomerular Filtration Rate 100 mL/min (>60); Est Glom Filt Rate - Afr Amer 121 mL/min (>60); Estimated Creatinine Clearance 82.36 ml/min; Globulin 3.9 g/dL (2.2-4.2); Glucose 109 mg/dL (74-106); Potassium 3.2 mmol/L (3.5-5.1); Protein, Total 6.3 g/dL (6.4-8.2); Sodium Level 139 mmol/L (136-145)
[2020-11-13 08:52] LABS: Absolute Lymphocyte Count 0.47 X10^3/uL (0.83-4.51); Absolute Neutrophil Count 9.8 X10^3/uL (2.0-7.7); Basophil# 0.03 X10^3/uL; Basophil% 0.3 % (0-1); Hemoglobin 14.2 g/dL (13.0-16.5); Lymphocyte # 0.47 X10^3/ul (0.83-4.51); Lymphocyte % 4.3 % (19-41); Mean Corp Hgb Conc 32.3 g/dL (32-36); Mean Corpuscular Hgb 29.8 pg (27.0-32.0); Mean Corpuscular Volume 92.4 fL (80-94); Mean Platelet Vol. 11.1 fl (6.2-12.0); Monocyte# 0.57 X10^3/uL; Monocyte% 5.2 % (0-10); NRBC Flagged by Analyzer 0 % (0-5); Neutrophil # 9.81 X10^3/uL (2.7-7.7); Neutrophil % 89.5 % (47-70); POSITIVE DIFFERENTIAL YES; Platelet Count 137 K/mm3 (150-450); RBC Distribution Width CV 13.7 % (11.6-14.6); RBC Distribution Width SD 47.1 fl (35.1-43.9); Red Blood Count 4.76 M/mm3 (4.6-6.2)
[2020-11-13 08:55] LABS: Differential Indicated SCAN CRITERIA MET
[2020-11-13 09:12] VITALS: BP 152/66; PULSE 78
[2020-11-13] MEDS: Aspirin E.C. 81 MG Tablet PO (09:12)
[2020-11-13] MEDS: Metoprolol Tartrate 100 MG Tablet PO ×2 (09:12→21:00)
[2020-11-13 09:14] LABS: Differential Comment SCANNED
[2020-11-13] MEDS: Furosemide 40 MG Tablet PO (09:15)
[2020-11-13] MEDS: Potassium Chloride Oral Tablet 20 MEQ 60 MEQ PO (10:06)
[2020-11-13] MEDS: Vancomycin IV 1,000 MG/200 ML BAG 200 MG IV (11:23)
--- NOTE | 2020-11-13 12:02 | PN.HOSP_ITS ---
Subjective Subjective Patient was seen and examined. He feels improved. Denied any fever or chills. Objective Data Objective Data Vital Signs: Vital Signs Temp Pulse Resp BP Pulse Ox 98.8 F 78 18 152/66 H 98 11/13/20 08:02 11/13/20 09:12 11/13/20 08:02 11/13/20 09:12 11/13/20 08:02 Oxygen Delivery Method Room Air Weight: 114.8 kg Body Mass Index (BMI) 35.3 Intake & Output: Intake and Output for Last 24 Hours 11/11/20 11/12/20 11/13/20 23:59 23:59 23:59 Intake Total 1352 / 1352 3554 / 4154 1424 / 1424 Output Total 100 / 100 2500 / 2500 400 / 400 Balance 1252 / 1252 1054 / 1654 1024 / 1024 Lab / Micro Data Result Diagrams: 11/13/20 05:12 11/13/20 05:12 Labs: Laboratory Results - last 24 hr 11/13/20 11/13/20 11/13/20 05:12 05:12 05:12 WBC 11.0 RBC 4.76 Hgb 14.2 Hct 44.0 MCV 92.4 MCH 29.8 MCHC 32.3 RDW Std Deviation 47.1 H RDW Coeff of [place] 13.7 Plt Count 137 L MPV 11.1 Immature Gran % (Auto) 0.700 Neut % (Auto) 89.5 H Lymph % (Auto) 4.3 L [place] % (Auto) 5.2 Eos % (Auto) 0.0 Baso % (Auto) 0.3 Absolute Neuts (auto) 9.8 H Absolute Lymphs (auto) 0.47 L Nucleated RBC % 0 Differential Comment SCANNED Sodium 139 Potassium 3.2 L Chloride 105 Carbon Dioxide 22.0 Anion Gap 12 BUN 17 Creatinine 0.80 Estim Creat Clear Calc 82.36 Est GFR (MDRD) Af Amer 121 Est GFR (MDRD) Non-Af 100 BUN/Creatinine Ratio 21.4 H Glucose 109 H Calcium 7.4 L Magnesium 1.8 Total Bilirubin 0.80 AST 85 H ALT 43 Alkaline Phosphatase 83 Total Protein 6.3 L Albumin 2.4 L Globulin 3.9 Albumin/Globulin Ratio 0.6 L Micro: Microbiology 11/11/20 20:02 Blood Culture (Wb) - Right Wrist Blood Culture - Preliminary Streptococcus group G 11/11/20 18:05 Blood Culture (Wb) - Right Hand Bacteria Detection (PCR) - Final Strep not Strep pneumo 11/11/20 18:05 Blood Culture (Wb) - Right Hand Blood Culture - Final Streptococcus group G Physical Exam Narrative Physical exam: General: Alert, Oriented x3, Cooperative, No apparent distress, Well developed HEENT: Atraumatic Oral: Moist Mucosa Neck: Supple Lungs: Clear to auscultation Cardiovascular: HS I+II, regular, no murmurs Abdomen: Bowel Sounds Present, Soft, Non Tender Extremities: Left lower leg erythema and edema is much improved. Assessment & Plan Assessment/Plan (1) Cellulitis of left leg: (2) Essential hypertension: (3) Dyspnea on exertion: (4) Atherosclerotic heart disease of [place] coronary artery without angina pectoris: QUALIFIERS: [place] vs. transplanted heart: [place] heart Qualified Code(s): I25.10 - Atherosclerotic heart disease of [place] coronary artery without angina pectoris PLAN: Summary: 75-year-old male with multiple comorbidities who comes in with a 2-day history of general malaise and myalgias and found to have left leg cellulitis. 1. Acute left lower leg cellulitis, in the setting of chronic venous insufficiency, improving Continue to elevate the leg and IV cefazolin 2. Acute streptococcal bacteremia, Continue on IV cefazolin, 2D echo is pending, ID consulted 3. Hypokalemia, replaced 4. Hypertension, fairly uncontrolled, Amlodipine is on hold on account of chronic leg swelling Hydrochlorothiazide held on account of persistent hypokalemia Patient has adverse reaction to lisinopril and losartan -see allergy list Already on Metoprolol, will add hydralazine 25mg BID 5. Rest of her chronic medical conditions are stable Continue rest of her home medications Charges/Coding Visit Charges Inpatient E&M: 78115 Subs Hosp L2
[2020-11-13 14:43] VITALS: BP 117/69; PULSE 71
[2020-11-13] MEDS: hydrALAZINE 25 MG Tablet PO ×2 (14:43→21:00)
[2020-11-13 17:35] VITALS: BP 147/80; PULSE 74; RESP 18; TEMP 37; O2SAT 98
[2020-11-13 21:00] VITALS: BP 151/70; PULSE 67; RESP 18; TEMP 37.2; O2SAT 96
[2020-11-13] MEDS: Pravastatin 40 MG Tablet PO (21:00)
[2020-11-13 23:04] LABS: Vancomycin, Trough Level 7.8 ug/mL (5.0-15.0)
[2020-11-14 05:00] VITALS: BP 144/67; PULSE 65; RESP 16; TEMP 36.8; O2SAT 96
[2020-11-14] MEDS: Cefazolin 2 GM in 0.9% Normal Saline 100 ML IV ×2 (05:09→11:10)
[2020-11-14] MEDS: Loratadine 10 MG Tablet PO (05:19)
[2020-11-14 06:52] LABS: Absolute Lymphocyte Count 1.14 X10^3/uL (0.83-4.51); Absolute Neutrophil Count 3.5 X10^3/uL (2.0-7.7); Basophil# 0.02 X10^3/uL; Basophil% 0.4 % (0-1); Eosinophil# 0.15 X10^3/uL; Eosinophils% 2.7 % (0-5); Hematocrit 41.1 % (40-54); Hemoglobin 13.7 g/dL (13.0-16.5); Lymphocyte # 1.14 X10^3/ul (0.83-4.51); Lymphocyte % 20.7 % (19-41); Mean Corp Hgb Conc 33.3 g/dL (32-36); Mean Corpuscular Hgb 29.3 pg (27.0-32.0); Mean Corpuscular Volume 87.8 fL (80-94); Mean Platelet Vol. 9.8 fl (6.2-12.0); Monocyte# 0.64 X10^3/uL; Monocyte% 11.6 % (0-10); NRBC Flagged by Analyzer 0 % (0-5); Neutrophil # 3.54 X10^3/uL (2.7-7.7); Neutrophil % 64.2 % (47-70); Platelet Count 135 K/mm3 (150-450); RBC Distribution Width CV 13.9 % (11.6-14.6); Red Blood Count 4.68 M/mm3 (4.6-6.2); White Blood Count 5.5 K/mm3 (4.4-11.0)
[2020-11-14 07:01] LABS: ALB/GLOB Ratio 0.7 RATIO (0.9-2.4); AST(SGOT) 56 U/L (15-37); Alanine Aminotransfer ALT/SGPT 36 U/L (16-61); Albumin, Serum 2.7 g/dL (3.2-5.0); Alkaline Phosphatase 98 U/L (45-117); Anion Gap 7 (5-15); BUN 19 mg/dL (7-18); Calcium,Total 8.2 mg/dL (8.5-10.1); Chloride 104 mmol/L (98-107); Creatinine, Serum 0.79 mg/dL (0.70-1.30); EST Glomerular Filtration Rate 101 mL/min (>60); Est Glom Filt Rate - Afr Amer 122 mL/min (>60); Estimated Creatinine Clearance 65.89 ml/min; Globulin 3.8 g/dL (2.2-4.2); Glucose 121 mg/dL (74-106); Potassium 3.1 mmol/L (3.5-5.1); Protein, Total 6.5 g/dL (6.4-8.2); Sodium Level 140 mmol/L (136-145)
[2020-11-14] MEDS: Multivitamins,Therapeutic Tablet 1 TABLET PO (08:35)
[2020-11-14] MEDS: Acetaminophen 325 MG Tablet 650 MG PO (08:38)
[2020-11-14 08:41] VITALS: BP 148/74; PULSE 74; RESP 18; TEMP 36.8; O2SAT 94
[2020-11-14 09:23] VITALS: PULSE 76
[2020-11-14] MEDS: Potassium Chloride Oral Tablet 20 MEQ 40 MEQ PO (09:23)
[2020-11-14] MEDS: Furosemide 40 MG Tablet PO (09:23)
[2020-11-14] MEDS: hydrALAZINE 25 MG Tablet PO (09:23)
[2020-11-14] MEDS: Aspirin E.C. 81 MG Tablet PO (09:23)
[2020-11-14 09:25] VITALS: PULSE 76
[2020-11-14] MEDS: Metoprolol Tartrate 100 MG Tablet PO (09:25)
--- NOTE | 2020-11-14 09:55 | CASEMGMT ---
RN PURNIMA Face to Face with patient for initial transition planning/care coordination assessment. RN CM introduced self and role at [facility]. Patient sitting in chair, alert and oriented. Patient willing to participate in assessment and is able to answer all questions appropriately. Care providers, pharmacy, and demographics verified. Patient wishes to discharge home, denies need for home health at this time. Patient states he has no further needs or concerns at this time. CM to follow for discharge planning needs that may arise. PCP: Ha[facility] Specialists: Shadia diversified crops farmer Preferred Pharmacy: [facility] Insurance: [facility] Prescription Benefit: yes Living Will/HPOA: yes, Anita Leaver LNOK: Living Arrangements: Patient lives with in a mobile home with ramp to enter the home. Patient states he is independent at home. Transportation: self/ DME/HHC: Patient states he has tub bench, raised toilet, cane, walker, and cpap at home. Patient denies previous HHC or SNF . Disposition Plan: Patient to discharge home with family support and follow-up plans in place. Angelica VALLE, RN, CM
[2020-11-14] MEDS: BENZOCAINE/MENTHOL 1 LOZENGE MUCOUS MEM (11:09)
--- NOTE | 2020-11-14 13:57 | CON.PCM.ID_ITS ---
Assessment & Plan Assessment/Plan (1) Cellulitis of left leg: (2) Streptococcal bacteremia: PLAN: Group G strep bacteremia from LLE cellulitis, ok for home on 5 more days po keflex. Recommend continuing to wear compression stockings, following up with PCP/cardiology re: edema management to decrease risk of recurrent infection. Will follow as needed, wrote rx, d/w Dr. Maloney HPI Consult Data Date of Consult: 11/14/20 HPI Narrative HPI Narrative: DEJUAN PÉREZ, is a 75 M who presented with 3 days of L lower leg redness, pain, swelling, and fever. Some recent draining from [place], worsened edema in that leg. He and have gotten covid vaccine. Came to ED, admitted on abx, now narrowed to cefazolin, feeling better, leg much less red. Full ROS performed and neg except as noted above. FORMERLY [facility], 1928–1983 Medical History Arthritis Asthma Atherosclerotic heart disease of [place] coronary artery without angina pectoris CPAP (continuous positive airway pressure) dependence Dyspnea on exertion Essential hypertension Former smoker Hyperlipidemia Hypertension Irregular heart beat SILAS (obstructive sleep apnea) Photosensitivity Premature ventricular contraction PVT (paroxysmal ventricular tachycardia) Sleep apnea Home Medications aspirin 81 mg tablet,delayed release 81 mg PO DAILY@0800 tab 08/12/17 [History Last Taken 11/11/20] loratadine 10 mg tablet 10 mg PO DAILY 08/12/17 [History Last Taken 11/10/20] multivitamin 1 tab PO DAILY 08/12/17 [History Last Taken 11/11/20] metoprolol tartrate 100 mg tablet 100 mg PO BID #180 tab 02/01/20 [Rx Last Taken 11/11/20] pravastatin 40 mg tablet 40 mg PO QHS #90 tab 02/26/20 [Rx Last Taken 11/10/20] furosemide 40 mg tablet 40 mg PO DAILY PRN #30 tab 07/27/20 [Rx Last Taken 11/11/20] acidophilus-pectin, citrus [Acidophilus Probiotic] 1 cap PO DAILY 11/11/20 [History Last Taken 11/11/20] amlodipine 5 mg PO DAILY 11/11/20 [History Last Taken 11/11/20] hydrochlorothiazide 25 mg PO DAILY 11/11/20 [History Last Taken 11/11/20] cephalexin 500 mg PO TID #15 cap 11/14/20 [Rx Last Taken Unknown] Allergy/AdvReac Type Severity Reaction Status Date / Time lisinopril AdvReac Severe Tachycardia Verified 11/11/20 17:52 losartan [From Cozaar] AdvReac Severe flushing Verified 11/11/20 17:52 of face and chest Family History Brother Dysrhythmia Brother CAD (coronary artery disease) Presence of stent in coronary artery Cancer prostate Father Heart disease Cancer prostate Surgical History History of cardiac cath Hx of appendectomy Social History Smoking Status: Former smoker how long ago did patient quit smokin alcohol intake: current alcohol intake frequency: a few times a month Alcohol type: beer substance use type: does not use what type of physical activity do you participate in: walking Physical Exam Const alert, oriented x3 and no apparent distress General Appearance: cooperative HEENT normocephalic and head/scalp atraumatic Eyes PERRL and EOMs intact bilaterally Neck supple and No nodes Resp normal air movement and clear to auscultation bilaterally Cardio regular rate and regular rhythm GI normal to inspection, nondistended, normoactive bowel sounds Extremity General Extremity: edema Skin Skin Narrative: LLE improving erythema Neuro CN's II-XII intact bilaterally Lab / Micro Data Result Diagrams: 11/14/20 05:55 11/14/20 05:55 Labs: Laboratory Results - last 24 hr 11/13/20 11/14/20 11/14/20 22:12 05:55 05:55 WBC 5.5 RBC 4.68 Hgb 13.7 Hct 41.1 MCV 87.8 MCH 29.3 MCHC 33.3 RDW Std Deviation 44.0 H RDW Coeff of [place] 13.9 Plt Count 135 L MPV 9.8 Immature Gran % (Auto) 0.400 Neut % (Auto) 64.2 Lymph % (Auto) 20.7 [place] % (Auto) 11.6 H Eos % (Auto) 2.7 Baso % (Auto) 0.4 Absolute Neuts (auto) 3.5 Absolute Lymphs (auto) 1.14 Nucleated RBC % 0 Sodium 140 Potassium 3.1 L Chloride 104 Carbon Dioxide 29.0 Anion Gap 7 BUN 19 H Creatinine 0.79 Estim Creat Clear Calc 65.89 Est GFR (MDRD) Af Amer 122 Est GFR (MDRD) Non-Af 101 BUN/Creatinine Ratio 24.0 H Glucose 121 H Calcium 8.2 L Total Bilirubin 0.50 AST 56 H ALT 36 Alkaline Phosphatase 98 Total Protein 6.5 Albumin 2.7 L Globulin 3.8 Albumin/Globulin Ratio 0.7 L Vancomycin Trough 7.8 Micro: Microbiology 11/12/20 05:18 Blood Culture - Preliminary Blood Culture (Wb) - Left Hand No growth in 48 hours. 11/12/20 05:14 Blood Culture - Preliminary Blood Culture (Wb) - Anticubital Right No growth in 48 hours. 11/11/20 20:02 Blood Culture - Final Blood Culture (Wb) - Right Wrist Streptococcus group G 11/11/20 18:05 Bacteria Detection (PCR) - Final Blood Culture (Wb) - Right Hand Strep not Strep pneumo Blood Culture - Final Streptococcus group G
[2020-11-14 14:03] VITALS: BP 153/79; PULSE 69; RESP 18; TEMP 36.8; O2SAT 93
[2020-11-14] MEDS: 0.9% Saline Lock 10 ML Syringe IV (16:02)
--- NOTE | 2020-11-14 16:02 | PCM.DC ---
Discharge Instructions Diet Discharge Diet: - (No added salt regular diet) Activity Discharge Activity: Return to Normal Activity Follow Up Care Please Follow Up With: Rudolph Be DO When: in 1-2 weeks Test Results: Test results from this visit will be discussed in further detail at your follow-up appointment, if applicable. Discharge Plan Admission Admit Date/Time: 11/13/20 21:30 Primary Reason for Your Visit: cellulitis left lower leg Attending Provider: Alton Maloney Primary Care Provider: Rudolph Be Consulting Providers: Gilmar King Discharge Orders/Prescriptions Prescriptions: New cephalexin 500 mg capsule 500 mg PO TID Qty: 15 RF: 0 furosemide 40 mg Tablet 40 mg PO DAILY Qty: 30 RF: 0 lisinopril 20 mg tablet 20 mg PO DAILY Qty: 30 RF: 0 potassium chloride 10 mEq capsule, extended release 20 meq PO DAILY Qty: 60 RF: 0 Continued multivitamin tablet 1 tab PO DAILY RF: 0 loratadine 10 mg tablet 10 mg PO DAILY RF: 0 aspirin 81 mg tablet,delayed release (DR/EC) 81 mg PO DAILY@0800 RF: 0 acidophilus-pectin, citrus 100 million cell-10 mg Capsule 1 cap PO DAILY RF: 0 metoprolol tartrate 100 mg tablet 100 mg PO BID Qty: 180 RF: 3 pravastatin 40 mg tablet 40 mg PO QHS Qty: 90 RF: 3 Discontinued furosemide [Lasix] 40 mg tablet 40 mg PO DAILY PRN (Reason: edema) Qty: 30 RF: 3 amlodipine 5 mg tablet 5 mg PO DAILY RF: 0 hydrochlorothiazide 25 mg tablet 25 mg PO DAILY RF: 0 Referrals / Follow Up: Rudolph Be DO [Primary Care Provider] - In 1 Week Disposition Disposition (needs filled in before D/C Order can be placed): Home, Self Care
[2020-11-14 17:16] VITALS: BP 137/66; PULSE 70; RESP 18; TEMP 37.1; O2SAT 93
--- NOTE | 2020-11-16 19:49 | DS.PCM_ITS ---
Providers Date of Admission: 11/13/20 Date of Discharge: 11/14/20 Primary Care Physician: Dr. Rudolph Be, DO Consultations 11/13/20 13:32 Consult: Infectious Disease Routine Consulting Provider: Gilmar King Reason for Consult: Bacteremia/cellulitis EMERGENT Consult: No MD Notified: Yes Date Notified: 11/14/20 Time Notified: 08:27 Method of Notification: spoke with answer service Reason For Visit: CELLULITIS Diagnosis Discharge Diagnosis (1) Cellulitis of left leg: Status: Acute Code(s): L03.116 - Cellulitis of left lower limb (2) Streptococcal bacteremia: Status: Acute Code(s): R78.81 - Bacteremia; B95.5 - Unspecified streptococcus as the cause of diseases classified elsewhere Plan: Final diagnosis: #1 left lower extremity cellulitis secondary to group G Streptococcus #2 bacteremia secondary to group G Streptococcus from cellulitis #3 essential hypertension #4 hyperlipidemia #5 coronary artery disease Medications at Discharge Home Medications aspirin 81 mg tablet,delayed release 81 mg PO DAILY@0800 tab 08/12/17 loratadine 10 mg tablet 10 mg PO DAILY 08/12/17 multivitamin 1 tab PO DAILY 08/12/17 metoprolol tartrate 100 mg tablet 100 mg PO BID #180 tab 02/01/20 pravastatin 40 mg tablet 40 mg PO QHS #90 tab 02/26/20 acidophilus-pectin, citrus 1 cap PO DAILY 11/11/20 cephalexin 500 mg PO TID #15 cap 11/14/20 furosemide 40 mg PO DAILY #30 tab 11/14/20 lisinopril 20 mg PO DAILY #30 tab 11/14/20 potassium chloride 20 meq PO DAILY #60 cap 11/14/20 Hospital Course Operations None Procedures None Summary of Care Provided Minutes Spent on Discharge: 31 Hospital Course: This 75-year-old white male was seen in the emergency room at [facility] with a chief complaint of left lower leg redness and pain, patient also complained of generalized weakness. On examination, patient was felt to have a left lower leg cellulitis, he received Unasyn IV, labs were remarkable for a low potassium at 3.1, patient's white blood cell count was elevated at 14. Patient was admitted to [place] [address], he was seen in consultation by infectious diseases and he received IV antibiotics. Patient's cellulitis improved during his hospitalization and he had no untoward events. Patient's blood culture was positive for group G strep. On 11/14/2020, patient was seen and examined: On examination he appeared in good health and spirits. Vital signs as documented. Skin warm and dry, patient had some generalized redness of the left lower extremity along with some edema. Neck without JVD, neck was supple, trachea midline, thyroid was normal. Lungs clear bilaterally, normal air movement was noted. Heart exam notable for regular rhythm, normal sounds and absence of murmurs, rubs or gallops. Abdomen unremarkable and without evidence of organomegaly, masses, or abdominal aortic enlargement. Bowel sounds are present, abdomen is not distended. Extremities- there was some generalized edema of both lower legs noted worse on the left, no cyanosis was noted, no clubbing was noted. Neuro: Cranial nerves II through XII are grossly intact, no focal motor deficits were noted, sensation to light touch and pinprick intact, motor exam 5/5 throughout. Psych: Patient is alert and oriented x3, he does not appear anxious or depressed, he does not appear agitated. Patient's blood pressure medications were adjusted during his hospital stay due to concerns that some of his medications could be causing lower extremity edema, I discussed changing the patient's medications at the time of discharge and placing him on lisinopril, although the patient had an allergy to lisinopril listed, he states he was told at one time by physician it caused an increased heart rate and he has not been on it for years. I recommended that he go back on lisinopril and he agreed to try it. On 11/14/2020, she was discharged home in stable condition Weight / BMI Weight Weight: 114.8 kg Body Mass Index (BMI) 35.3 ABG / Lab / Microbiology Data Result Diagrams: 11/14/20 05:55 11/14/20 05:55 Microbiology: Microbiology 11/12/20 05:18 Blood Culture (Wb) - Left Hand Blood Culture - Preliminary No growth in 48 hours. 11/12/20 05:14 Blood Culture (Wb) - Anticubital Right Blood Culture - Prel iminary No growth in 48 hours. 11/11/20 20:02 Blood Culture (Wb) - Right Wrist Blood Culture - Final Streptococcus group G 11/11/20 18:05 Blood Culture (Wb) - Right Hand Bacteria Detection (PCR) - Final Strep not Strep pneumo 11/11/20 18:05 Blood Culture (Wb) - Right Hand Blood Culture - Final Streptococcus group G D/C Instructions Discharge Diet: - (No added salt regular diet) Please Follow Up With: Rudolph Be DO When: in 1-2 weeks Meaningful Use Info Meaningful Use Diagnoses (Choose all that apply): None applicable Discharge Plan Admission Admit Date/Time: 11/13/20 21:30 Primary Reason for Your Visit: cellulitis left lower leg Attending Provider: Alton Maloney Primary Care Provider: Rudolph Be Consulting Providers: Gilmar King Discharge Orders/Prescriptions Prescriptions: New cephalexin 500 mg capsule 500 mg PO TID Qty: 15 RF: 0 furosemide 40 mg Tablet 40 mg PO DAILY Qty: 30 RF: 0 lisinopril 20 mg tablet 20 mg PO DAILY Qty: 30 RF: 0 potassium chloride 10 mEq capsule, extended release 20 meq PO DAILY Qty: 60 RF: 0 Continued multivitamin tablet 1 tab PO DAILY RF: 0 loratadine 10 mg tablet 10 mg PO DAILY RF: 0 aspirin 81 mg tablet,delayed release (DR/EC) 81 mg PO DAILY@0800 RF: 0 acidophilus-pectin, citrus 100 million cell-10 mg Capsule 1 cap PO DAILY RF: 0 metoprolol tartrate 100 mg tablet 100 mg PO BID Qty: 180 RF: 3 pravastatin 40 mg tablet 40 mg PO QHS Qty: 90 RF: 3 Discontinued furosemide [Lasix] 40 mg tablet 40 mg PO DAILY PRN (Reason: edema) Qty: 30 RF: 3 amlodipine 5 mg tablet 5 mg PO DAILY RF: 0 hydrochlorothiazide 25 mg tablet 25 mg PO DAILY RF: 0 Referrals / Follow Up: Rudolph Be DO [Primary Care Provider] - In 1 Week Disposition Disposition (needs filled in before D/C Order can be placed): Home, Self Care Charges/Coding Visit Charges Inpatient E&M: 04793 Disch Hosp
== END 2020-11-14 17:40 | disposition home or self-care (01) | DRG 603 ==
LOC: ED 20:37 → MS3 11-12 07:12
PROVIDERS: Internal Medicine; Emergency Provider Emergency Medicine; PCP Family Medicine; Visit Provider Internal Medicine
DX: L03.116 Cellulitis of left lower limb (principal); I87.2 Venous insufficiency (chronic) (peripheral); E87.6 Hypokalemia; E78.5 Hyperlipidemia, unspecified; I25.10 Atherosclerotic heart disease of native coronary artery without angina pectoris; I10 Essential (primary) hypertension; B95.4 Other streptococcus as the cause of diseases classified elsewhere; M19.90 Unspecified osteoarthritis, unspecified site; G47.33 Obstructive sleep apnea (adult) (pediatric); Z79.899 Other long term (current) drug therapy; Z79.82 Long term (current) use of aspirin; Z87.891 Personal history of nicotine dependence; J45.909 Unspecified asthma, uncomplicated
CPT/HCPCS: 36415; 71045; 80048; 80053; 80202; 81001; 83605; 83735; 85025; 87040; 87077; 87149; 87186; 99285; J7030; J7040; J7050; Q9957; A4216; J0295; J3490

== ENCOUNTER → 2020-11-29 14:54 | Outpatient (CLI) | payer MEDICARE, SELFPAY ==
[2020-11-29 14:30] VITALS: BMI 34.2
[2020-11-29 16:54] LABS: Anion Gap 3 (5-15); BUN 23 mg/dL (7-18); BUN/Creat Ratio 26.4 RATIO (10-20); Calcium,Total 9.4 mg/dL (8.5-10.1); Chloride 104 mmol/L (98-107); Creatinine, Serum 0.87 mg/dL (0.70-1.30); EST Glomerular Filtration Rate 90 mL/min (>60); Est Glom Filt Rate - Afr Amer 109 mL/min (>60); Glucose 98 mg/dL (74-106); Potassium 4.2 mmol/L (3.5-5.1); Sodium Level 141 mmol/L (136-145)
== END ==
PROVIDERS: PCP Family Medicine; Referring Provider Family Medicine; Visit Provider Family Medicine
DX: I10 Essential (primary) hypertension (principal)
CPT/HCPCS: 36415; 80048

== ENCOUNTER → 2022-02-06 | Outpatient (CLI) | payer MEDICARE, SELFPAY ==
[2022-02-06 15:38] LABS: AST(SGOT) 28 U/L (15-37); Alanine Aminotransfer ALT/SGPT 31 U/L (16-61); Albumin, Serum 3.6 g/dL (3.2-5.0); Alkaline Phosphatase 62 U/L (45-117); Anion Gap 8 (5-15); BUN 19 mg/dL (7-18); BUN/Creat Ratio 25.2 RATIO (10-20); Calcium,Total 9.2 mg/dL (8.5-10.1); Chloride 107 mmol/L (98-107); Cholesterol 133 mg/dL (200); Creatinine, Serum 0.75 mg/dL (0.70-1.30); EST Glomerular Filtration Rate 106 mL/min (>60); Est Glom Filt Rate - Afr Amer 129 mL/min (>60); Globulin 3.7 g/dL (2.2-4.2); Glucose 110 mg/dL (74-106); High Density Lipoprotein 44 mg/dL; Potassium 4.3 mmol/L (3.5-5.1); Protein, Total 7.3 g/dL (6.4-8.2); Sodium Level 141 mmol/L (136-145); Triglycerides 110 mg/dL; Very Low Density Lipoprotein 22 mg/dL (5-40)
== END | disposition home or self-care (01) ==
LOC: BIMLAB 13:46
PROVIDERS: PCP Family Medicine; Visit Provider Family Medicine
DX: E78.5 Hyperlipidemia, unspecified (principal)
CPT/HCPCS: 36415; 80053; 80061

== ENCOUNTER → 2022-07-25 | Outpatient (CLI) | payer MEDICARE, SELFPAY ==
[2022-07-25 17:01] LABS: Anion Gap 7 (5-15); BUN 20 mg/dL (7-18); BUN/Creat Ratio 24.9 RATIO (10-20); Calcium,Total 9.6 mg/dL (8.5-10.1); Chloride 105 mmol/L (98-107); EST Glomerular Filtration Rate 99 mL/min (>60); Est Glom Filt Rate - Afr Amer 119 mL/min (>60); Glucose 110 mg/dL (74-106); Potassium 4.9 mmol/L (3.5-5.1); Sodium Level 142 mmol/L (136-145)
== END | disposition home or self-care (01) ==
LOC: BIMLAB 15:05
PROVIDERS: PCP Family Medicine; Referring Provider Family Medicine; Visit Provider Family Medicine
DX: I10 Essential (primary) hypertension (principal)
CPT/HCPCS: 36415; 80048

== ENCOUNTER 2023-05-10 16:00 | Emergency (ER) | payer MEDICARE, SELFPAY ==
[2023-05-10 16:00] VITALS: BP 213/82; PULSE 101; RESP 16; TEMP 36.4; O2SAT 94; BMI 36.1
--- NOTE | 2023-05-10 16:35 | EKG12_ITS ---
Test Reason : GI BLEED Blood Pressure : / mmHG Vent. Rate : 108 BPM Atrial Rate : 108 BPM P-R Int : 172 ms QRS Dur : 088 ms QT Int : 326 ms P-R-T Axes : 067 012 051 degrees QTc Int : 436 ms Sinus tachycardia Otherwise normal ECG Confirmed by ALEX ALAS, ALEXANDRIA ([id number]), development editor DION KEMP ([id number]) on 05/21/2023 8:45:41 AM Referred By: Confirmed By:ALEXANDRIA JOHNSON MD
--- NOTE | 2023-05-10 16:36 | EDS_ITS ---
HPI History of Present Illness Chief Complaint: GI Bleed Informant: patient and spouse/S.O. Narrative Narrative: Presents secondary to rectal bleeding as well as chills. He has a history of hemorrhoids with some chronic bleeding. He states lately the bleeding has been heavier than normal. It does not seem to be mixed with the stool. He has also noted chills today. [facility] Medical History Arthritis Asthma Atherosclerotic heart disease of [place] coronary artery without angina pectoris Cellulitis of left leg CPAP (continuous positive airway pressure) dependence Dyspnea on exertion Essential hypertension Former smoker Hyperlipidemia Hypertension Irregular heart beat SILAS (obstructive sleep apnea) Photosensitivity Premature ventricular contraction PVT (paroxysmal ventricular tachycardia) Sepsis Sinusitis, acute maxillary Sleep apnea Streptococcal bacteremia Home Medications aspirin 81 mg tablet,delayed release 81 mg PO DAILY@0800 HEALTH 08/12/17 [History Last Taken 11/11/20] multivitamin 1 tab PO DAILY 08/12/17 [History Last Taken 11/11/20] acidophilus 100 million cell-pectin, citrus 10 mg capsule 1 cap PO DAILY [facility] 11/11/20 [History Last Taken 11/11/20] cetirizine 10 mg capsule (All Day Allergy (cetirizine)) 10 mg PO DAILY PRN allergy symptoms 11/29/20 [History Last Taken Unknown] glucosamine-chondroitin 250 mg-200 mg tablet (Osteo Bi-Flex) 2 tab PO DAILY 01/19/22 [History Last Taken Unknown] lisinopril 20 mg tablet 20 mg PO DAILY #90 tabs 12/07/22 [Rx Last Taken Unknown] furosemide 40 mg tablet 40 mg PO DAILY #90 tabs 02/06/23 [Rx Last Taken Unknown] metoprolol tartrate 100 mg tablet 100 mg PO BID #180 tabs 02/06/23 [Rx Last Taken Unknown] pravastatin 40 mg tablet See Rx Instructions .Route .COMPLEX #90 tabs 02/27/23 [Rx Last Taken Unknown] potassium chloride 10 mEq capsule,extended release See Rx Instructions .Route .COMPLEX #180 caps 03/05/23 [Rx Last Taken Unknown] clindamycin HCl 150 mg capsule 300 mg (2 x 150 mg) PO 4X/DAY #80 CAPSULES 05/10/23 [Rx Last Taken Unknown] Allergy/AdvReac Type Severity Reaction Status Date / Time losartan [From Cozaar] AdvReac Severe flushing Verified 05/10/23 16:03 of face and chest Family History Brother Dysrhythmia Brother CAD (coronary artery disease) Presence of stent in coronary artery Cancer prostate Father Heart disease Cancer prostate Surgical History History of cardiac cath Hx of appendectomy Social History Smoking Status: Former smoker how long ago did patient quit smokin alcohol intake: current alcohol intake frequency: a few times a month Alcohol type: beer substance use type: does not use what type of physical activity do you participate in: walking ROS ROS ED Constitutional Constitutional ED: Reports chills; Denies fever(s) Eyes Eyes: Denies change in vision or discharge from eye(s) ENT ENT ED: Denies discharge from eye(s), rhinorrhea or sore throat Cardiovascular Cardiovascular: Denies chest pain or palpitations Respiratory/Chest Respiratory/Chest: Denies cough or dyspnea Gastrointestinal Gastrointestinal: Reports abdominal pain; Denies diarrhea, nausea or vomiting Musculoskeletal Musculoskeletal: Reports back pain; Denies extremity pain Integumentary Denies Abrasions or rash Neurologic Neurologic: Denies headache(s) or weakness Psychiatric Psychiatric: Denies anxiety or depression Allergic/Immunologic Allergic/Immunologic ED: Denies lip swelling or urticaria EXAM Physical Exam Const Vital Signs: 05/10/23 16:00 05/10/23 17:57 05/10/23 19:15 Temperature 97.5 F L 100.3 F H 100 F H Temperature Source Temporal Oral Oral Pulse Rate 101 H 111 H 108 H Respiratory Rate 16 12 21 H Blood Pressure 213/82 H 151/66 H 159/86 H Blood Pressure Mean 125 94 110 Pulse Ox 94 91 Oxygen Delivery Method Room Air Room Air Room Air 05/10/23 20:03 Temperature 100 F H Temperature Source Oral Pulse Rate 103 H Respiratory Rate 15 Blood Pressure 147/60 H Blood Pressure Mean 89 Pulse Ox 92 Oxygen Delivery Method Room Air Positive well nourished and well developed General Appearance ED: well developed HEENT Reports moist mucous membranes Eyes EOMs intact bilaterally Chest Wall inspection of chest normal and palpation of chest normal Resp normal respiratory effort and clear to auscultation bilaterally Cardio regular rate and regular rhythm GI normal to inspection, nondistended, normoactive bowel sounds and non-tender Extremity normal to inspection Neuro oriented x3 and no sensory deficits noted Motor Exam: strength 5/5 throughout Psych mental status grossly normal Skin no rashes or lesions noted MDM MDM MDM Narrative Medical decision making narrative: Patient placed on front desk monitor. IV line initiated. Labwork obtained to evaluate for leukocytosis, anemia, and electrolyte derangement. Chest x-ray obtained to evaluate for acute lung pathology, cardiac size, or mediastinal abnormality. Swab for COVID and influenza obtained. History & Record Review Discussion w/independent historian: Patient Lab Data Attestation: I reviewed the patient's lab results. Labs: Laboratory Results - last 24 hr 05/10/23 16:23 WBC 12.2 H RBC 4.73 Hgb 14.3 Hct 42.4 MCV 89.6 MCH 30.2 MCHC 33.7 RDW Std Deviation 42.7 RDW Coeff of [place] 13.2 Plt Count 149 L MPV 10.2 Immature Gran % (Auto) 0.300 Neut % (Auto) 92.7 H Lymph % (Auto) 4.1 L [place] % (Auto) 1.6 Eos % (Auto) 1.2 Baso % (Auto) 0.1 Absolute Neuts (auto) 11.3 H Absolute Lymphs (auto) 0.50 L Nucleated RBC % 0 Differential Comment SEE COMMENT Platelet Estimate ADEQUATE RBC Morphology N CHROM Anisocytosis RARE PT 14.9 INR 1.2 APTT 26.0 Sodium 138 Potassium 3.9 Chloride 106 Carbon Dioxide 27.0 Anion Gap 5 BUN 18 Creatinine 0.98 Estim Creat Clear Calc 64.03 Est GFR (MDRD) Af Amer 95 Est GFR (MDRD) Non-Af 78 BUN/Creatinine Ratio 18.4 Glucose 193 H Lactic Acid 2.3 H* Calcium 9.0 Total Bilirubin 0.80 Direct Bilirubin 0.20 AST 43 H ALT 36 Alkaline Phosphatase 72 Total Protein 7.3 Albumin 3.6 Globulin 3.7 Radiography Chest X-Ray - ED: 1 View, Read by ED Physician, Chronic Changes and No Infiltrates Diagnostic Testing: Clinical Impression(s) from Imaging Studies Chest X-Ray 05/10/23 16:54 IMPRESSION: No radiographic evidence of acute cardiopulmonary disease. Electronically Signed: Dylan Vargas DO at 17:15 EST , Abdomen/Pelvis CT 05/10/23 17:37 IMPRESSION: Bilateral renal cysts. Mild colonic diverticulosis. Mild mesenteric thickening/edema in the right lower quadrant, of questionable etiology. Electronically Signed: Dylan Vargas DO at 18:38 EST , EKG Initial EKG: Attestation: I personally reviewed and interpreted this EKG as follows: Interpretation: Sinus Tachycardia (Sinus tachycardia at 108. No acute ischemia.) Treatment and Re-Evaluation :: CBC was a white count of 12.2. Hemoglobin is 14.3 which is actually improved when compared to prior values. He does have a left shift noted with 92% neutrophils. Coags are unremarkable. Chemistry studies largely unremarkable with normal renal function. His glucose is elevated at 193. His lactic acid is mildly elevated at 2.3. LFTs are unremarkable. CT scan of the abdomen pelvis with IV contrast is obtained. This reveals mild mesenteric thickening and edema in the right lower quadrant of questionable etiology. Mild colonic diverticulosis is noted with no evidence of diverticulitis. Patient did develop a temperature here up to 100.3. At that time he was given Tylenol and urine cultures were obtained. When I went back into examine the patient again, his right lower extremity is now noted to be significantly red and warm to the touch. He does have some chronic venous changes but appears to have an acute cellulitis at this time as well. Rectal examination is performed. No significant external hemorrhoids noted. Small amount of bright red blood noted on gloved finger but no significantly enlarged internal hemorrhoids are palpated. Given the changes noted on CT scan I did speak with Dr. Caro. Patient is not tender in the right lower quadrant. He does not have a history of A-fib. He recommended close follow-up and antibiotics for the patient's cellulitis which will also cover bowel. Be placed on clindamycin and given a dose of IV clindamycin here. Patient was given strict instructions to return for any worsening symptoms this weekend. He is to closely follow with his primary care physician and will be referred to Dr. Caro as well. Discharge Plan Triage Chief Complaint: GI Bleed ED Provider: Concetta Barrett Dx/Rx/DC Orders Clinical Impression: Cellulitis, Lower GI bleed Instructions: ED Cellulitis, ED Hemorrhoids, ED Lower GI Bleeding (Stable) Prescriptions: New clindamycin HCl 150 mg capsule 300 mg PO 4X/DAY Qty: 80 0RF No Action multivitamin tablet 1 tab PO DAILY aspirin 81 mg tablet,delayed release (DR/EC) 81 mg PO DAILY@0800 All Day Allergy (cetirizine) 10 mg capsule 10 mg PO DAILY PRN (Reason: allergy symptoms) glucosamine-chondroitin [Osteo Bi-Flex] 250-200 mg tablet 2 tab PO DAILY furosemide 40 mg tablet 40 mg PO DAILY Qty: 90 2RF metoprolol tartrate 100 mg tablet 100 mg PO BID Qty: 180 3RF acidophilus-pectin, citrus 100 million cell-10 mg Capsule 1 cap PO DAILY lisinopril 20 mg tablet 20 mg PO DAILY Qty: 90 3RF pravastatin 40 mg tablet See Rx Instructions .ROUTE .COMPLEX Qty: 90 3RF Dose Instruction: TAKE 1 TABLET BY MOUTH AT BEDTIME Rx Instructions: TAKE 1 TABLET BY MOUTH AT BEDTIME potassium chloride 10 mEq capsule, extended release See Rx Instructions .ROUTE .COMPLEX Qty: 180 1RF Dose Instruction: Take 2 capsules by mouth once daily Rx Instructions: Take 2 capsules by mouth once daily Primary Care Provider: Rudolph Be Referrals: Rudolph Be DO [Primary Care Provider] - 5-7 Days Jonathan Caro DO [Med Staff - Active Staff] - As soon as possible Disposition Disposition: Home, Self Care
[2023-05-10] MEDS: 0.9% Normal Saline (1000mL) 1,000 ML 150 ML IV (16:41)
--- NOTE | 2023-05-10 16:54 | RAD_ITS ---
INDICATION: fever EXAMINATION/TECHNIQUE: X-RAY - XR Chest 1 View COMPARISON: FINDINGS: LINES/DEVICES: None. LUNGS: No consolidation, edema or effusion. No pneumothorax. MEDIASTINUM AND CARDIOVASCULAR STRUCTURES: Cardiac silhouette not enlarged. Central airways and mediastinal contour are unremarkable. BONES AND SOFT TISSUES: Unremarkable. RAD/Chest 1 View (Portable) IMPRESSION: No radiographic evidence of acute cardiopulmonary disease. Electronically Signed: Dylan Vargas DO at 17:15 EST ,
[2023-05-10 17:03] LABS: Absolute Neutrophil Count 11.3 X10^3/uL (2.0-7.7); Basophil# 0.01 X10^3/uL; Basophil% 0.1 % (0-1); Eosinophil# 0.15 X10^3/uL; Eosinophils% 1.2 % (0-5); Hematocrit 42.4 % (40-54); Hemoglobin 14.3 g/dL (13.0-16.5); Lymphocyte % 4.1 % (19-41); Mean Corp Hgb Conc 33.7 g/dL (32-36); Mean Corpuscular Hgb 30.2 pg (27.0-32.0); Mean Corpuscular Volume 89.6 fL (80-94); Mean Platelet Vol. 10.2 fl (6.2-12.0); Monocyte# 0.19 X10^3/uL; Monocyte% 1.6 % (0-10); NRBC Flagged by Analyzer 0 % (0-5); Neutrophil # 11.33 X10^3/uL (2.7-7.7); Neutrophil % 92.7 % (47-70); POSITIVE DIFFERENTIAL YES; Platelet Count 149 K/mm3 (150-450); RBC Distribution Width CV 13.2 % (11.6-14.6); RBC Distribution Width SD 42.7 fl (35.1-43.9); Red Blood Count 4.73 M/mm3 (4.6-6.2); White Blood Count 12.2 K/mm3 (4.4-11.0)
[2023-05-10 17:17] LABS: International Normalized Ratio 1.2; Prothrombin Time (Protime)PT. 14.9 SECONDS (11.7-14.9)
[2023-05-10 17:18] LABS: AST(SGOT) 43 U/L (15-37); Alanine Aminotransfer ALT/SGPT 36 U/L (16-61); Albumin, Serum 3.6 g/dL (3.2-5.0); Alkaline Phosphatase 72 U/L (45-117); Anion Gap 5 (5-15); BUN 18 mg/dL (7-18); BUN/Creat Ratio 18.4 RATIO (10-20); Chloride 106 mmol/L (98-107); Creatinine, Serum 0.98 mg/dL (0.70-1.30); EST Glomerular Filtration Rate 78 mL/min (>60); Est Glom Filt Rate - Afr Amer 95 mL/min (>60); Estimated Creatinine Clearance 64.03 ml/min; Globulin 3.7 g/dL (2.2-4.2); Glucose 193 mg/dL (74-106); Potassium 3.9 mmol/L (3.5-5.1); Protein, Total 7.3 g/dL (6.4-8.2); Sodium Level 138 mmol/L (136-145)
[2023-05-10 17:19] LABS: Differential Indicated SCAN CRITERIA MET
[2023-05-10 17:31] LABS: Anisocytosis RARE; Platelet Estimate ADEQUATE (ADEQ); Red Cell Morphology N CHROM NORMAL (NORM C&C)
[2023-05-10 17:35] LABS: Lactic Acid 2.3 mmol/L (0.4-1.9)
--- NOTE | 2023-05-10 17:37 | CT_ITS ---
STUDY: CT ABDOMEN AND PELVIS WITH CONTRAST REASON FOR EXAM: Male, 78 years old. gi bleed, elevated lactate RADIATION DOSAGE (If Supplied By Facility): CTDIvol = ( 16.58 ) mGy, DLP = ( 1288.6 ) mGycm TECHNIQUE: Transaxial images were obtained from the dome of the diaphragm to the symphysis pubis without oral contrast. IV 100mL Isovue-300 was administered. Sagittal and coronal images were reconstructed. Individualized dose optimization techniques were used for this CT. COMPARISON: None. FINDINGS: The visualized lung bases are unremarkable. The visualized portions of the heart are within normal limits. Granulomatous calcifications and a 2 cm cyst in the liver. Normal gallbladder and extrahepatic biliary system. Granulomatous calcifications in the spleen. Normal pancreas. Normal bilateral adrenal glands. Bilateral renal cysts. Normal visualized stomach. Normal small intestine. Mild diverticulosis of the colon. The appendix is not visualized. There is mesenteric thickening/edema in the right lower quadrant. Mildly calcified abdominal aorta. Normal inferior vena cava. Normal retroperitoneum. Normal urinary bladder. Normal abdominal wall. Normal osseous structures. CT/Abdomen/Pelvis W IV Cont ONLY IMPRESSION: Bilateral renal cysts. Mild colonic diverticulosis. Mild mesenteric thickening/edema in the right lower quadrant, of questionable etiology. Electronically Signed: Dylan Vargas DO at 18:38 EST ,
[2023-05-10] MEDS: Morphine 4 MG/ML Syringe IV (17:44)
[2023-05-10] MEDS: Ondansetron 4 MG/2 ML Vial IV (17:44)
[2023-05-10 17:57] VITALS: BP 151/66; PULSE 111; RESP 12; TEMP 37.9
[2023-05-10] MEDS: Acetaminophen 500 MG Tablet 1000 MG PO (18:26)
[2023-05-10 19:15] VITALS: BP 159/86; PULSE 108; RESP 21; TEMP 37.7; O2SAT 91
[2023-05-10] MEDS: Clindamycin 600 MG/50 ML BAG 100 MG IV (19:20)
[2023-05-10 20:03] VITALS: BP 147/60; PULSE 103; RESP 15; TEMP 37.7; O2SAT 92
[2023-05-10 20:23] VITALS: BP 122/59; PULSE 100; RESP 20; TEMP 37.2; O2SAT 93
[2023-05-10 20:57] LABS: Reflex Lactate? Y
--- NOTE | 2023-05-15 15:12 | ED.RN ---
THIS IRN CALLS PT. PT WITH IMPROVED SX SINCE PREVIOUS VISIT.
--- NOTE | 2023-05-15 15:12 | ED.RN ---
THIS RN CALLS PATIENT. PER PT , PT HAS HAD IMPROVING SX. BLOOD CULTURE LIKELY CONTAMINATED PER DR. LANCASTER.
== END 2023-05-10 20:28 | disposition home or self-care (01) ==
PROVIDERS: Emergency Provider Emergency Medicine; PCP Family Medicine; Visit Provider Emergency Medicine
DX: L03.90 Cellulitis, unspecified (principal); K92.2 Gastrointestinal hemorrhage, unspecified; I25.10 Atherosclerotic heart disease of native coronary artery without angina pectoris; E78.5 Hyperlipidemia, unspecified; I10 Essential (primary) hypertension; G47.33 Obstructive sleep apnea (adult) (pediatric); Z79.82 Long term (current) use of aspirin; Z79.899 Other long term (current) drug therapy; Z87.891 Personal history of nicotine dependence
CPT/HCPCS: 71045; 74177; 80048; 80076; 83605; 85025; 85610; 85730; 87040; 87077; 87149; 87186; 87428; 93005; 96365; 96375; 99285; J7030; Q9967; A4216; J2405

== ENCOUNTER → 2023-06-05 | Outpatient (CLI) | payer MEDICARE, SELFPAY ==
--- NOTE | 2023-06-05 13:34 | ART_ITS ---
Reason For Study: RLE CELLULITIS Procedure A bilateral lower extremity continuous wave Doppler with analog waveform analysis and ankle brachial indexes. Left Segmental Pressures Left brachial= 156mmHg. Left posterior tibial artery = 180mmHg. Left dorsalis pedis artery = 182mmHg. The left posterior tibial artery waveforms are triphasic. The left dorsalis pedis waveforms are triphasic. Right Segmental Pressures Right brachial= 149mmHg. Right posterior tibial artery = 190mmHg. Right dorsalis pedis artery = 194mmHg. The right posterior tibial artery waveforms are triphasic. The right dorsalis pedis waveforms are triphasic. Indices The right resting ankle brachial index is 1.24. The right ankle brachial index by the posterior tibial artery is 1.22. The right ankle brachial index by the dorsalis pedis is 1.24. The left resting ankle brachial index is 1.17. The left ankle brachial index by the posterior tibial artery is 1.15. The left ankle brachial index by the dorsalis pedis is 1.17. VL/Ankle Brachial Index Interpretation Summary Right ADDI 1.24, normal. Doppler/PVR waveforms of the right leg normal at rest. Left ADDI 1.17, normal. Doppler/PVR waveforms of the left leg normal at rest. Ordering Physician: Jonathan Be Referring Physician: JONATHAN BE MD Performed By: Aliyah Morillo RVT, RDCS
== END | disposition home or self-care (01) ==
LOC: CVS 13:33
PROVIDERS: PCP Family Medicine; Referring Provider Family Medicine; Visit Provider Family Medicine
DX: I73.9 Peripheral vascular disease, unspecified (principal)
CPT/HCPCS: 93922

== ENCOUNTER → 2024-02-11 | Outpatient (CLI) | payer MEDICARE, SELFPAY ==
[2024-02-11 15:42] LABS: ALB/GLOB Ratio 0.9 RATIO (0.9-2.4); AST(SGOT) 35 U/L (15-37); Alanine Aminotransfer ALT/SGPT 30 U/L (16-61); Albumin, Serum 3.7 g/dL (3.2-5.0); Alkaline Phosphatase 74 U/L (45-117); Anion Gap 3 (5-15); BUN 21 mg/dL (7-18); Calcium,Total 9.6 mg/dL (8.5-10.1); Chloride 106 mmol/L (98-107); Creatinine, Serum 0.91 mg/dL (0.70-1.30); EST Glomerular Filtration Rate 85 mL/min (>60); Est Glom Filt Rate - Afr Amer 103 mL/min (>60); Globulin 3.9 g/dL (2.2-4.2); Glucose 133 mg/dL (74-106); Potassium 4.2 mmol/L (3.5-5.1); Protein, Total 7.6 g/dL (6.4-8.2); Sodium Level 142 mmol/L (136-145)
== END | disposition home or self-care (01) ==
LOC: BIMLAB 14:05
PROVIDERS: PCP Family Medicine; Visit Provider Family Medicine
DX: R60.9 Edema, unspecified (principal)
CPT/HCPCS: 36415; 80053

== ENCOUNTER → 2024-08-18 | Outpatient (CLI) | payer MEDICARE, SELFPAY ==
[2024-08-18 18:12] LABS: ALB/GLOB Ratio 1.4 RATIO (0.9-2.4); AST(SGOT) 30 U/L (<=37); Alanine Aminotransfer ALT/SGPT 23 U/L (<=46); Albumin, Serum 4.5 g/dL (3.4-4.8); Alkaline Phosphatase 71 U/L (40-129); Anion Gap 12 (5-15); BUN 20 mg/dL (4-19); BUN/Creat Ratio 24.3 RATIO (10-20); Calcium,Total 10.2 mg/dL (7.6-11.0); Chloride 102 mmol/L (98-108); Creatinine, Serum 0.84 mg/dL (0.70-1.20); EST Glomerular Filtration Rate 88 (>60); Globulin 3.2 g/dL (2.2-4.2); Glucose 132 mg/dL (70-99); Potassium 5.2 mmol/L (3.3-5.1); Protein, Total 7.7 g/dL (5.9-8.4); Sodium Level 143 mmol/L (133-145); Total Bilirubin 1.13 mg/dL (0.00-1.30)
== END | disposition home or self-care (01) ==
LOC: BIMLAB 13:47
PROVIDERS: PCP Family Medicine; Referring Provider Family Medicine; Visit Provider Family Medicine
DX: I10 Essential (primary) hypertension (principal)
CPT/HCPCS: 36415; 80053

== ENCOUNTER → 2025-03-01 | Outpatient (CLI) | payer MEDICARE, SELFPAY ==
[2025-03-01 18:21] LABS: Anion Gap 12 (5-15); BUN 21 mg/dL (4-19); BUN/Creat Ratio 23.7 RATIO (10-20); Calcium,Total 9.4 mg/dL (7.6-11.0); Carbon Dioxide 25.4 mmol/L (21.0-32.0); Chloride 103 mmol/L (98-108); Cholesterol 150 mg/dL (<=200); Glucose 146 mg/dL (70-99); Low Density Lipoprotein Calc. 82 mg/dL; Potassium 4.1 mmol/L (3.3-5.1); Triglycerides 142 mg/dL; Very Low Density Lipoprotein 28 mg/dL (5-40); cholesterol:hdl ratio screen 3.77
== END | disposition home or self-care (01) ==
LOC: MTLAB 14:40
PROVIDERS: PCP Family Medicine; Referring Provider Family Medicine; Visit Provider Family Medicine
DX: E78.5 Hyperlipidemia, unspecified (principal); M19.90 Unspecified osteoarthritis, unspecified site
CPT/HCPCS: 36415; 80048; 80061